=== PATIENT | male | born 1990 | race Caucasian/White ===

== ENCOUNTER 2021-01-24 11:30 | Inpatient (IN) | payer OTHER ==
[2021-01-24 12:33] VITALS: BMI 29.9
[2021-01-24] MEDS ORDERED: ONDANSETRON *ODT* 4 MG TABLET SL PRN (13:44)
[2021-01-24] MEDS ORDERED: METHOCARBAMOL 500 MG TABLET PO PRN (13:44)
[2021-01-24] MEDS ORDERED: METHADONE HCL 10 MG TABLET (FOR DETOX USE ONLY) PO ONE (13:44)
[2021-01-24] MEDS ORDERED: chlordiazePOXIDE HCL 25 MG CAPSULE PO PRN (13:44)
[2021-01-24] MEDS ORDERED: MAGNESIUM CITRATE 300 ML BOTTLE PO PRN (13:44)
[2021-01-24] MEDS ORDERED: MENTHOL/PHENOL 1 EACH UD MM PRN (13:44)
[2021-01-24] MEDS ORDERED: BISMUTH SUBSALICYLATE 262 MG/15 ML BTL PO PRN (13:44)
[2021-01-24] MEDS ORDERED: NICOTINE POLACRILEX 2 MG GUM BUC PRN (13:44)
[2021-01-24] MEDS ORDERED: MAGNESIUM HYDROX 2400MG/30ML ORAL SUSPENSION 30 ML CUP PO PRN (13:44)
[2021-01-24] MEDS ORDERED: cloNIDine HCL 0.1 MG TABLET PO PRN (13:44)
[2021-01-24] MEDS ORDERED: IBUPROFEN 400 MG TABLET (FP) PO PRN (13:44)
[2021-01-24] MEDS ORDERED: MAG HYDROX/AL HYDROX/SIMETH 30 ML UNIT-DOSE CUP PO PRN (13:44)
[2021-01-24] MEDS ORDERED: ACETAMINOPHEN 325 MG TABLET (FP) PO PRN ×2 (13:44)
[2021-01-24] MEDS: hydrOXYzine PAMOATE 25 MG CAPSULE (FP) PO SCH ×3 (15:07→22:42)
[2021-01-24] MEDS: PRENATAL VITAMINS W/ FOLIC ACID TABLET (FP) PO SCH (15:07)
[2021-01-24] MEDS: NICOTINE 14 MG/24 HOURS TOPICAL PATCH TD SCH (15:07)
[2021-01-24] MEDS: chlordiazePOXIDE HCL 25 MG CAPSULE PO SCH ×3 (15:08→22:43)
[2021-01-24] MEDS: THIAMINE HCL 100 MG TABLET (FP) PO SCH (22:42)
[2021-01-24] MEDS: MELATONIN 5 MG TABLETS PO SCH (22:42)
[2021-01-25] MEDS: hydrOXYzine PAMOATE 25 MG CAPSULE (FP) PO SCH ×5 (06:14→23:04)
[2021-01-25] MEDS: chlordiazePOXIDE HCL 25 MG CAPSULE PO SCH ×4 (06:15→23:04)
[2021-01-25] MEDS ORDERED: METHADONE HCL 10 MG TABLET (FOR DETOX USE ONLY) ONE (09:27)
[2021-01-25] MEDS ORDERED: METHADONE HCL 5 MG TABLET (FOR DETOX USE ONLY) ONE (09:27)
[2021-01-25] MEDS ORDERED: METHADONE (DETOX) 20 MG, METHADONE (DETOX) 5 MG PO ONE (10:00)
[2021-01-25] MEDS: PRENATAL VITAMINS W/ FOLIC ACID TABLET (FP) PO SCH (10:10)
[2021-01-25] MEDS: NICOTINE 14 MG/24 HOURS TOPICAL PATCH TD SCH (10:11)
[2021-01-25 10:20] LABS: HEMATOCRIT 38.2 % (35.4-49); MCH 28.7 pg (25.7-33.7); MEAN CELL VOLUME 84.2 fl (80-96); MEAN PLT VOLUME 8.8 fl (7.5-11.1); PLATELET COUNT 283 K/MM3 (134-434); RBC 4.54 M/mm3 (4.00-5.60)
[2021-01-25 10:39] LABS: ALBUMIN 3.6 g/dl (3.4-5.0); CALCIUM 9.2 mg/dL (8.5-10.1)
[2021-01-25 10:40] LABS: BLOOD UREA NITROGEN 13.8 mg/dL (7-18)
[2021-01-25 10:42] LABS: CREATININE 1.1 mg/dL (0.55-1.3)
[2021-01-25 10:44] LABS: BILIRUBIN,TOTAL 0.3 mg/dL (0.2-1); TOT PROT 6.4 g/dl (6.4-8.2)
[2021-01-25] MEDS: MELATONIN 5 MG TABLETS PO SCH (23:03)
[2021-01-25] MEDS: THIAMINE HCL 100 MG TABLET (FP) PO SCH (23:04)
[2021-01-26] MEDS: hydrOXYzine PAMOATE 25 MG CAPSULE (FP) PO SCH ×5 (05:59→22:52)
[2021-01-26] MEDS: chlordiazePOXIDE HCL 25 MG CAPSULE PO SCH ×4 (06:00→22:53)
[2021-01-26] MEDS ORDERED: METHADONE HCL 10 MG TABLET (FOR DETOX USE ONLY) PO ONE (10:00)
[2021-01-26] MEDS: PRENATAL VITAMINS W/ FOLIC ACID TABLET (FP) PO SCH (10:07)
[2021-01-26] MEDS: NICOTINE 14 MG/24 HOURS TOPICAL PATCH TD SCH (10:08)
[2021-01-26] MEDS: MELATONIN 5 MG TABLETS PO SCH (22:52)
[2021-01-26] MEDS: THIAMINE HCL 100 MG TABLET (FP) PO SCH (22:52)
[2021-01-27] MEDS ORDERED: chlordiazePOXIDE HCL 10 MG CAPSULE PO PRN
[2021-01-27] MEDS: chlordiazePOXIDE HCL 10 MG CAPSULE PO SCH ×2 (05:56→10:16)
[2021-01-27] MEDS: hydrOXYzine PAMOATE 25 MG CAPSULE (FP) PO SCH ×2 (05:56→10:18)
[2021-01-27] MEDS ORDERED: METHADONE HCL 10 MG TABLET (FOR DETOX USE ONLY) ONE (09:06)
[2021-01-27] MEDS ORDERED: METHADONE HCL 5 MG TABLET (FOR DETOX USE ONLY) ONE (09:06)
[2021-01-27 09:24] VITALS: BP 106/60; PULSE 68; TEMP 97.1
[2021-01-27] MEDS ORDERED: METHADONE (DETOX) 10 MG, METHADONE (DETOX) 5 MG PO ONE (10:00)
[2021-01-27] MEDS: PRENATAL VITAMINS W/ FOLIC ACID TABLET (FP) PO SCH (10:15)
[2021-01-27] MEDS: NICOTINE 14 MG/24 HOURS TOPICAL PATCH TD SCH (10:18)
[2021-01-28] MEDS ORDERED: chlordiazePOXIDE HCL 10 MG CAPSULE PO SCH (05:00)
[2021-01-28 06:06] LABS: SARS-CoV-2 NAA Not Detected (Not Detected)
[2021-01-28] MEDS ORDERED: METHADONE HCL 10 MG TABLET (FOR DETOX USE ONLY) PO ONE (10:00)
[2021-01-29] MEDS ORDERED: chlordiazePOXIDE HCL 10 MG CAPSULE PO ONE (05:00)
[2021-01-29] MEDS ORDERED: METHADONE HCL 5 MG TABLET (FOR DETOX USE ONLY) PO ONE (06:00)
== END 2021-01-27 11:00 | disposition left against medical advice (07) | DRG 770 ==
LOC: YASAS 11:30 → Y3N 13:19
PROVIDERS: ADMIT Allergy & Immunology; ATTEND Allergy & Immunology
PROC: HZ2ZZZZ Detoxification Services for Substance Abuse Treatment (ICD-10-PCS; principal; 2021-01-24)
DX: F11.23 Opioid dependence with withdrawal (principal); F13.231 Sedative, hypnotic or anxiolytic dependence with withdrawal delirium; F17.210 Nicotine dependence, cigarettes, uncomplicated; F19.24 Other psychoactive substance dependence with psychoactive substance-induced mood disorder; F41.1 Generalized anxiety disorder; E66.9 Obesity, unspecified; Z68.30 Body mass index [BMI] 30.0-30.9, adult; Z56.0 Unemployment, unspecified; Z59.0 Homelessness
CPT/HCPCS: 36415; 80053; 85027; 86780; 93005; 93010; C9803; U0003; U0005

== ENCOUNTER 2021-03-10 11:38 | Inpatient (IN) | payer OTHER ==
[2021-03-10] MEDS ORDERED: IBUPROFEN 400 MG TABLET (FP) PO PRN (12:40)
[2021-03-10] MEDS ORDERED: cloNIDine HCL 0.1 MG TABLET PO PRN (12:40)
[2021-03-10] MEDS ORDERED: MENTHOL/PHENOL 1 EACH UD MM PRN (12:40)
[2021-03-10] MEDS ORDERED: NICOTINE POLACRILEX 2 MG GUM BUC PRN (12:40)
[2021-03-10] MEDS ORDERED: BISMUTH SUBSALICYLATE 262 MG/15 ML BTL PO PRN (12:40)
[2021-03-10] MEDS ORDERED: METHADONE HCL 10 MG TABLET (FOR DETOX USE ONLY) PO ONE (12:40)
[2021-03-10] MEDS ORDERED: ACETAMINOPHEN 325 MG TABLET (FP) PO PRN ×2 (12:40)
[2021-03-10] MEDS ORDERED: MAGNESIUM HYDROX 2400MG/30ML ORAL SUSPENSION 30 ML CUP PO PRN (12:40)
[2021-03-10] MEDS ORDERED: MAGNESIUM CITRATE 300 ML BOTTLE PO PRN (12:40)
[2021-03-10] MEDS ORDERED: MAG HYDROX/AL HYDROX/SIMETH 30 ML UNIT-DOSE CUP PO PRN (12:40)
[2021-03-10] MEDS ORDERED: ONDANSETRON *ODT* 4 MG TABLET SL PRN (12:40)
[2021-03-10 12:45] VITALS: BMI 27.7
[2021-03-10] MEDS ORDERED: METHADONE HCL 10 MG TABLET (FOR DETOX USE ONLY) ONE (12:58)
[2021-03-10] MEDS ORDERED: IBUPROFEN 400 MG TABLET (FP) PO ONE (12:59)
[2021-03-10] MEDS: diazePAM 5 MG TABLET PO PRN (14:09)
[2021-03-10] MEDS: hydrOXYzine PAMOATE 25 MG CAPSULE (FP) PO SCH ×3 (14:09→22:04)
[2021-03-10] MEDS: PRENATAL VITAMINS W/ FOLIC ACID TABLET (FP) PO SCH (14:10)
[2021-03-10] MEDS: diazePAM 5 MG TABLET PO SCH ×2 (17:46→22:05)
[2021-03-10] MEDS ORDERED: MELATONIN 5 MG TABLETS PO SCH (22:00)
[2021-03-10] MEDS: THIAMINE HCL 100 MG TABLET (FP) PO SCH (22:04)
[2021-03-11] MEDS: hydrOXYzine PAMOATE 25 MG CAPSULE (FP) PO SCH ×5 (05:39→22:03)
[2021-03-11] MEDS: diazePAM 5 MG TABLET PO SCH ×4 (05:40→22:03)
[2021-03-11] MEDS ORDERED: METHADONE HCL 10 MG TABLET (FOR DETOX USE ONLY) ONE (09:13)
[2021-03-11] MEDS ORDERED: METHADONE HCL 5 MG TABLET (FOR DETOX USE ONLY) ONE (09:13)
[2021-03-11] MEDS: PRENATAL VITAMINS W/ FOLIC ACID TABLET (FP) PO SCH (09:43)
[2021-03-11] MEDS ORDERED: METHADONE (DETOX) 20 MG, METHADONE (DETOX) 5 MG PO ONE (10:00)
[2021-03-11 11:34] LABS: HEMATOCRIT 39.5 % (35.4-49); HEMOGLOBIN 13.2 GM/dL (11.7-16.9); MCH 28.8 pg (25.7-33.7); MCHC 33.5 g/dl (32.0-35.9); MEAN CELL VOLUME 85.9 fl (80-96); MEAN PLT VOLUME 8.1 fl (7.5-11.1); PLATELET COUNT 246 K/MM3 (134-434); RDW 14.3 % (11.9-15.9)
[2021-03-11 11:37] LABS: ALBUMIN 3.3 g/dl (3.4-5.0); BLOOD UREA NITROGEN 15.9 mg/dL (7-18); CALCIUM 8.8 mg/dL (8.5-10.1)
[2021-03-11 11:42] LABS: BILIRUBIN,TOTAL 0.4 mg/dL (0.2-1); CREATININE 0.9 mg/dL (0.55-1.3); TOT PROT 5.8 g/dl (6.4-8.2)
[2021-03-11] MEDS: MELATONIN 5 MG TABLETS PO SCH (22:03)
[2021-03-11] MEDS: THIAMINE HCL 100 MG TABLET (FP) PO SCH (22:03)
[2021-03-12] MEDS: hydrOXYzine PAMOATE 25 MG CAPSULE (FP) PO SCH ×5 (06:06→22:09)
[2021-03-12] MEDS: diazePAM 5 MG TABLET PO SCH ×3 (06:06→22:08)
[2021-03-12] MEDS: METHOCARBAMOL 500 MG TABLET PO PRN (06:07)
[2021-03-12] MEDS: diazePAM 5 MG TABLET PO PRN (09:43)
[2021-03-12] MEDS: PRENATAL VITAMINS W/ FOLIC ACID TABLET (FP) PO SCH (09:43)
[2021-03-12] MEDS ORDERED: P-EPHED 60MG/TRIPROLIDI 2.5MG TABLET PO PRN (09:51)
[2021-03-12] MEDS ORDERED: METHADONE HCL 10 MG TABLET (FOR DETOX USE ONLY) PO ONE (10:00)
[2021-03-12] MEDS: MELATONIN 5 MG TABLETS PO SCH (22:07)
[2021-03-12] MEDS: THIAMINE HCL 100 MG TABLET (FP) PO SCH (22:08)
[2021-03-13] MEDS: hydrOXYzine PAMOATE 25 MG CAPSULE (FP) PO SCH ×5 (05:32→22:11)
[2021-03-13] MEDS: diazePAM 5 MG TABLET PO SCH ×2 (05:33→17:31)
[2021-03-13] MEDS ORDERED: METHADONE HCL 5 MG TABLET (FOR DETOX USE ONLY) ONE (09:10)
[2021-03-13] MEDS ORDERED: METHADONE HCL 10 MG TABLET (FOR DETOX USE ONLY) ONE (09:10)
[2021-03-13] MEDS ORDERED: METHADONE (DETOX) 10 MG, METHADONE (DETOX) 5 MG PO ONE (10:00)
[2021-03-13] MEDS: PRENATAL VITAMINS W/ FOLIC ACID TABLET (FP) PO SCH (10:09)
[2021-03-13 14:12] LABS: SARS-CoV-2 NAA Not Detected (Not Detected)
[2021-03-13] MEDS: MELATONIN 5 MG TABLETS PO SCH (22:11)
[2021-03-13] MEDS: THIAMINE HCL 100 MG TABLET (FP) PO SCH (22:11)
[2021-03-14] MEDS: hydrOXYzine PAMOATE 25 MG CAPSULE (FP) PO SCH ×2 (05:48→11:02)
[2021-03-14] MEDS ORDERED: diazePAM 5 MG TABLET PO ONE (06:00)
[2021-03-14] MEDS ORDERED: METHADONE HCL 10 MG TABLET (FOR DETOX USE ONLY) PO ONE (10:00)
[2021-03-14] MEDS: hydrOXYzine PAMOATE 25 MG CAPSULE (FP) PO PRN (11:01)
[2021-03-14] MEDS: METHOCARBAMOL 500 MG TABLET PO PRN (11:02)
[2021-03-14] MEDS: PRENATAL VITAMINS W/ FOLIC ACID TABLET (FP) PO SCH (11:02)
[2021-03-14] MEDS: THIAMINE HCL 100 MG TABLET (FP) PO SCH (22:13)
[2021-03-14] MEDS: MELATONIN 5 MG TABLETS PO SCH (22:13)
[2021-03-15] MEDS ORDERED: METHADONE HCL 5 MG TABLET (FOR DETOX USE ONLY) PO ONE (06:00)
[2021-03-15 09:18] VITALS: BP 124/74; PULSE 79; TEMP 97.1
[2021-03-15] MEDS: hydrOXYzine PAMOATE 25 MG CAPSULE (FP) PO PRN (09:53)
[2021-03-15] MEDS: PRENATAL VITAMINS W/ FOLIC ACID TABLET (FP) PO SCH (09:53)
[2021-03-15] MEDS: METHOCARBAMOL 500 MG TABLET PO PRN (09:53)
== END 2021-03-15 09:40 | disposition other institution (70) | DRG 773 ==
LOC: YASAS 11:38 → Y3N 12:53
PROVIDERS: ADMIT Allergy & Immunology; ATTEND Allergy & Immunology
PROC: HZ2ZZZZ Detoxification Services for Substance Abuse Treatment (ICD-10-PCS; principal; 2021-03-10)
DX: F11.23 Opioid dependence with withdrawal (principal); F13.230 Sedative, hypnotic or anxiolytic dependence with withdrawal, uncomplicated; F17.210 Nicotine dependence, cigarettes, uncomplicated; F19.282 Other psychoactive substance dependence with psychoactive substance-induced sleep disorder; F19.24 Other psychoactive substance dependence with psychoactive substance-induced mood disorder; F41.1 Generalized anxiety disorder; Z56.0 Unemployment, unspecified; Z59.0 Homelessness
CPT/HCPCS: 36415; 80053; 85027; 86780; C9803; J0735; U0003; U0005

== ENCOUNTER 2021-03-31 01:03 | Inpatient (IN) | payer OTHER ==
[2021-03-31 01:22] VITALS: BMI 29.5
[2021-03-31] MEDS ORDERED: cloNIDine HCL 0.1 MG TABLET PO PRN (01:34)
[2021-03-31] MEDS ORDERED: METHADONE HCL 10 MG TABLET (FOR DETOX USE ONLY) PO ONE (01:34)
[2021-03-31] MEDS ORDERED: MENTHOL/PHENOL 1 EACH UD MM PRN (01:34)
[2021-03-31] MEDS ORDERED: ONDANSETRON *ODT* 4 MG TABLET SL PRN (01:34)
[2021-03-31] MEDS ORDERED: MAGNESIUM HYDROX 2400MG/30ML ORAL SUSPENSION 30 ML CUP PO PRN (01:34)
[2021-03-31] MEDS ORDERED: NICOTINE POLACRILEX 2 MG GUM BUC PRN (01:34)
[2021-03-31] MEDS ORDERED: diazePAM 5 MG TABLET PO ONE (01:34)
[2021-03-31] MEDS ORDERED: MAGNESIUM CITRATE 300 ML BOTTLE PO PRN (01:34)
[2021-03-31] MEDS ORDERED: BISMUTH SUBSALICYLATE 524 MG/30 ML PO PRN (01:34)
[2021-03-31] MEDS ORDERED: ACETAMINOPHEN 325 MG TABLET (FP) PO PRN ×2 (01:34)
[2021-03-31] MEDS ORDERED: MAG HYDROX/AL HYDROX/SIMETH 30 ML UNIT-DOSE CUP PO PRN (01:34)
[2021-03-31] MEDS: hydrOXYzine PAMOATE 25 MG CAPSULE (FP) PO SCH ×5 (05:25→22:05)
[2021-03-31] MEDS: diazePAM 5 MG TABLET PO SCH ×4 (05:25→22:05)
[2021-03-31] MEDS: IBUPROFEN 400 MG TABLET (FP) PO PRN ×2 (07:09→22:06)
[2021-03-31] MEDS: PRENATAL VITAMINS W/ FOLIC ACID TABLET (FP) PO SCH (10:04)
[2021-03-31] MEDS: METHOCARBAMOL 500 MG TABLET PO PRN ×2 (10:04→22:07)
[2021-03-31] MEDS: NICOTINE 14 MG/24 HOURS TOPICAL PATCH TD SCH (10:05)
[2021-03-31 10:34] LABS: BASO % 0.3 % (0-2.0); HEMATOCRIT 37.8 % (35.4-49); HEMOGLOBIN 12.4 GM/dL (11.7-16.9); LYMPH % 26.8 % (8-40); MCHC 32.8 g/dl (32.0-35.9); MEAN CELL VOLUME 85.2 fl (80-96); MEAN PLT VOLUME 7.8 fl (7.5-11.1); MONO % 8.3 % (3.8-10.2); NEUT % 63.6 % (42.8-82.8); PLATELET COUNT 295 10^3/uL (134-434); RBC 4.44 M/mm3 (4.00-5.60); RDW 14.4 % (11.9-15.9); WHITE BLOOD COUNT 10.5 K/mm3 (4.0-10.0)
[2021-03-31 11:14] LABS: CALCIUM 8.9 mg/dL (8.5-10.1)
[2021-03-31 11:16] LABS: ALBUMIN 3.5 g/dl (3.4-5.0)
[2021-03-31 11:17] LABS: BILIRUBIN,TOTAL 0.4 mg/dL (0.2-1); TOT PROT 6.2 g/dl (6.4-8.2)
[2021-03-31 11:20] LABS: CREATININE 1.1 mg/dL (0.55-1.3)
[2021-03-31] MEDS: diazePAM 5 MG TABLET PO PRN (13:13)
[2021-03-31] MEDS: MELATONIN 5 MG TABLETS PO SCH (22:07)
[2021-03-31] MEDS: THIAMINE HCL 100 MG TABLET (FP) PO SCH (22:42)
[2021-04-01] MEDS: hydrOXYzine PAMOATE 25 MG CAPSULE (FP) PO SCH ×5 (05:31→22:06)
[2021-04-01] MEDS: diazePAM 5 MG TABLET PO SCH ×3 (05:32→22:08)
[2021-04-01] MEDS ORDERED: METHADONE HCL 5 MG TABLET (FOR DETOX USE ONLY) ONE (08:59)
[2021-04-01] MEDS ORDERED: METHADONE HCL 10 MG TABLET (FOR DETOX USE ONLY) ONE (08:59)
[2021-04-01] MEDS ORDERED: METHADONE (DETOX) 20 MG, METHADONE (DETOX) 5 MG PO ONE (10:00)
[2021-04-01] MEDS: NICOTINE 14 MG/24 HOURS TOPICAL PATCH TD SCH (10:10)
[2021-04-01] MEDS: diazePAM 5 MG TABLET PO PRN (10:12)
[2021-04-01] MEDS: PRENATAL VITAMINS W/ FOLIC ACID TABLET (FP) PO SCH (10:38)
[2021-04-01] MEDS: METHOCARBAMOL 500 MG TABLET PO PRN ×2 (12:51→22:06)
[2021-04-01] MEDS: THIAMINE HCL 100 MG TABLET (FP) PO SCH (22:07)
[2021-04-01] MEDS: MELATONIN 5 MG TABLETS PO SCH (22:07)
[2021-04-02] MEDS: hydrOXYzine PAMOATE 25 MG CAPSULE (FP) PO SCH ×5 (05:32→22:09)
[2021-04-02] MEDS: METHOCARBAMOL 500 MG TABLET PO PRN ×2 (05:33→22:08)
[2021-04-02] MEDS: diazePAM 5 MG TABLET PO SCH ×2 (05:33→17:59)
[2021-04-02] MEDS: PRENATAL VITAMINS W/ FOLIC ACID TABLET (FP) PO SCH (10:00)
[2021-04-02] MEDS: diazePAM 5 MG TABLET PO PRN ×3 (10:00→22:11)
[2021-04-02] MEDS ORDERED: METHADONE HCL 10 MG TABLET (FOR DETOX USE ONLY) PO ONE (10:00)
[2021-04-02] MEDS: NICOTINE 14 MG/24 HOURS TOPICAL PATCH TD SCH (10:01)
[2021-04-02] MEDS: THIAMINE HCL 100 MG TABLET (FP) PO SCH (22:08)
[2021-04-02] MEDS: MELATONIN 5 MG TABLETS PO SCH (22:08)
[2021-04-03] MEDS: hydrOXYzine PAMOATE 25 MG CAPSULE (FP) PO SCH ×2 (05:45→10:15)
[2021-04-03] MEDS ORDERED: diazePAM 5 MG TABLET PO ONE (06:00)
[2021-04-03] MEDS ORDERED: METHADONE HCL 5 MG TABLET (FOR DETOX USE ONLY) ONE (08:57)
[2021-04-03] MEDS ORDERED: METHADONE HCL 10 MG TABLET (FOR DETOX USE ONLY) ONE (08:57)
[2021-04-03] MEDS ORDERED: METHADONE (DETOX) 10 MG, METHADONE (DETOX) 5 MG PO ONE (10:00)
[2021-04-03] MEDS: NICOTINE 14 MG/24 HOURS TOPICAL PATCH TD SCH (10:15)
[2021-04-03] MEDS: PRENATAL VITAMINS W/ FOLIC ACID TABLET (FP) PO SCH (10:15)
[2021-04-03] MEDS: METHOCARBAMOL 500 MG TABLET PO PRN ×2 (10:16→22:08)
[2021-04-03] MEDS: diazePAM 5 MG TABLET PO PRN (18:10)
[2021-04-03] MEDS: MELATONIN 5 MG TABLETS PO SCH (22:07)
[2021-04-03] MEDS: THIAMINE HCL 100 MG TABLET (FP) PO SCH (22:07)
[2021-04-03] MEDS: hydrOXYzine PAMOATE 25 MG CAPSULE (FP) PO PRN (22:08)
[2021-04-04] MEDS: NICOTINE 14 MG/24 HOURS TOPICAL PATCH TD SCH (09:10)
[2021-04-04] MEDS: METHOCARBAMOL 500 MG TABLET PO PRN ×2 (09:12→17:33)
[2021-04-04] MEDS: PRENATAL VITAMINS W/ FOLIC ACID TABLET (FP) PO SCH (09:12)
[2021-04-04] MEDS: diazePAM 5 MG TABLET PO PRN ×3 (09:12→22:05)
[2021-04-04] MEDS ORDERED: METHADONE HCL 10 MG TABLET (FOR DETOX USE ONLY) PO ONE (10:00)
[2021-04-04] MEDS: THIAMINE HCL 100 MG TABLET (FP) PO SCH (22:04)
[2021-04-04] MEDS: MELATONIN 5 MG TABLETS PO SCH (22:05)
[2021-04-04] MEDS: hydrOXYzine PAMOATE 25 MG CAPSULE (FP) PO PRN (22:05)
[2021-04-05] MEDS ORDERED: METHADONE HCL 5 MG TABLET (FOR DETOX USE ONLY) PO ONE (06:00)
[2021-04-05 09:54] VITALS: BP 116/74; PULSE 89; TEMP 96.1
== END 2021-04-05 09:41 | disposition home or self-care (01) | DRG 773 ==
LOC: YASAS 01:03 → Y3N 01:40
PROVIDERS: ADMIT Allergy & Immunology; ATTEND Allergy & Immunology
PROC: HZ2ZZZZ Detoxification Services for Substance Abuse Treatment (ICD-10-PCS; principal; 2021-03-31)
DX: F11.23 Opioid dependence with withdrawal (principal); F13.230 Sedative, hypnotic or anxiolytic dependence with withdrawal, uncomplicated; F17.210 Nicotine dependence, cigarettes, uncomplicated; F41.1 Generalized anxiety disorder; R79.89 Other specified abnormal findings of blood chemistry; Z56.0 Unemployment, unspecified
CPT/HCPCS: 36415; 80053; 85025; 86780; C9803; U0003; U0005

== ENCOUNTER 2022-05-09 10:46 | Inpatient (IN) | payer OTHER ==
[2022-05-09 11:48] VITALS: BMI 39.9
[2022-05-09] MEDS ORDERED: IBUPROFEN 400 MG TABLET (FP) PO PRN (12:29)
[2022-05-09] MEDS ORDERED: LOPERAMIDE HCL 2 MG CAPSULE PO PRN (12:29)
[2022-05-09] MEDS ORDERED: BENZOCAINE/MENTHOL (CHLORASEPTIC ) LOZENGE MM PRN (12:29)
[2022-05-09] MEDS ORDERED: ACETAMINOPHEN 325 MG TABLET (FP) PO PRN ×2 (12:29)
[2022-05-09] MEDS ORDERED: DICYCLOMINE HCL 10 MG CAPSULE PO PRN (12:29)
[2022-05-09] MEDS ORDERED: MAG HYDROX/AL HYDROX/SIMETH 30 ML UNIT-DOSE CUP PO PRN (12:29)
[2022-05-09] MEDS ORDERED: NICOTINE POLACRILEX 2 MG GUM BUC PRN (12:29)
[2022-05-09] MEDS ORDERED: ONDANSETRON *ODT* 4 MG TABLET SL PRN (12:29)
[2022-05-09] MEDS ORDERED: METHOCARBAMOL 500 MG TABLET PO PRN (12:29)
[2022-05-09] MEDS ORDERED: IBUPROFEN 600 MG TABLET (FP) PO PRN (12:29)
[2022-05-09] MEDS ORDERED: MAGNESIUM CITRATE 300 ML BOTTLE PO PRN (12:29)
[2022-05-09] MEDS ORDERED: MAGNESIUM HYDROX 2400MG/30ML ORAL SUSPENSION 30 ML CUP PO PRN (12:29)
[2022-05-09] MEDS ORDERED: BISMUTH SUBSALICYLATE 524 MG/30 ML PO PRN (12:29)
[2022-05-09] MEDS: hydrOXYzine PAMOATE 25 MG CAPSULE (FP) PO SCH ×3 (14:04→22:16)
[2022-05-09] MEDS: diazePAM 5 MG TABLET PO SCH ×2 (17:14→22:18)
[2022-05-09] MEDS: NICOTINE 10 MG CARTRIDGE (INHALER) IH PRN (17:24)
[2022-05-09] MEDS ORDERED: MELATONIN 5 MG TABLETS PO SCH (22:00)
[2022-05-09] MEDS: THIAMINE HCL 100 MG TABLET (FP) PO SCH (22:17)
[2022-05-10] MEDS ORDERED: methaDONE HCL 10 MG TABLET ONE (04:38)
[2022-05-10] MEDS ORDERED: methaDONE HCL 40 MG DISPERSABLE TABLET ONE (04:38)
[2022-05-10] MEDS: diazePAM 5 MG TABLET PO SCH ×4 (05:34→22:09)
[2022-05-10] MEDS: hydrOXYzine PAMOATE 25 MG CAPSULE (FP) PO SCH ×5 (05:34→22:09)
[2022-05-10] MEDS ORDERED: methaDONE HCL 10 MG TABLET PO ONE (06:00)
[2022-05-10 09:10] LABS: HEMOGLOBIN 12.2 GM/dL (11.7-16.9); MCH 28.7 pg (25.7-33.7); MCHC 34.9 g/dl (32.0-35.9); MEAN CELL VOLUME 82.4 fl (80-96); MEAN PLT VOLUME 7.4 fl (7.5-11.1); PLATELET COUNT 281 10^3/uL (134-434); RBC 4.24 M/mm3 (4.00-5.60); WHITE BLOOD COUNT 8.1 K/mm3 (4.0-10.0)
[2022-05-10 09:28] LABS: ALBUMIN 3.1 g/dl (3.4-5.0); CALCIUM 8.6 mg/dL (8.5-10.1)
[2022-05-10 09:29] LABS: BLOOD UREA NITROGEN 19.7 mg/dL (7-18)
[2022-05-10 09:34] LABS: BILIRUBIN,TOTAL 0.4 mg/dL (0.2-1)
[2022-05-10] MEDS: NICOTINE 10 MG CARTRIDGE (INHALER) IH PRN ×3 (10:13→22:11)
[2022-05-10] MEDS: NICOTINE 21 MG/24 HOURS TOPICAL PATCH TD SCH (10:13)
[2022-05-10] MEDS: PRENATAL VITAMINS W/ FOLIC ACID TABLET (FP) PO SCH (10:14)
[2022-05-10] MEDS: THIAMINE HCL 100 MG TABLET (FP) PO SCH (22:08)
[2022-05-10] MEDS: SUVOREXANT 15 MG TABLET PO PRN (22:10)
[2022-05-11] MEDS: diazePAM 5 MG TABLET PO SCH ×3 (05:17→22:04)
[2022-05-11] MEDS: hydrOXYzine PAMOATE 25 MG CAPSULE (FP) PO SCH ×5 (05:18→22:04)
[2022-05-11] MEDS: NICOTINE 10 MG CARTRIDGE (INHALER) IH PRN ×3 (05:18→22:02)
[2022-05-11] MEDS ORDERED: methaDONE HCL 40 MG DISPERSABLE TABLET PO SCH (08:45)
[2022-05-11] MEDS ORDERED: methaDONE HCL 10 MG TABLET ONE (08:53)
[2022-05-11] MEDS ORDERED: methaDONE HCL 40 MG DISPERSABLE TABLET ONE (08:53)
[2022-05-11] MEDS: PRENATAL VITAMINS W/ FOLIC ACID TABLET (FP) PO SCH (09:04)
[2022-05-11] MEDS: diazePAM 5 MG TABLET PO PRN ×2 (09:04→17:33)
[2022-05-11] MEDS: NICOTINE 21 MG/24 HOURS TOPICAL PATCH TD SCH (09:53)
[2022-05-11] MEDS: SUVOREXANT 15 MG TABLET PO PRN (22:04)
[2022-05-11] MEDS: THIAMINE HCL 100 MG TABLET (FP) PO SCH (22:04)
[2022-05-12] MEDS ORDERED: methaDONE HCL 10 MG TABLET ONE (04:13)
[2022-05-12] MEDS ORDERED: methaDONE HCL 40 MG DISPERSABLE TABLET ONE (04:13)
[2022-05-12] MEDS: diazePAM 5 MG TABLET PO SCH ×2 (05:22→17:51)
[2022-05-12] MEDS: hydrOXYzine PAMOATE 25 MG CAPSULE (FP) PO SCH ×5 (05:23→22:16)
[2022-05-12] MEDS: PRENATAL VITAMINS W/ FOLIC ACID TABLET (FP) PO SCH (10:11)
[2022-05-12] MEDS: NICOTINE 21 MG/24 HOURS TOPICAL PATCH TD SCH (10:12)
[2022-05-12] MEDS: THIAMINE HCL 100 MG TABLET (FP) PO SCH (22:16)
[2022-05-12] MEDS: SUVOREXANT 15 MG TABLET PO PRN (22:17)
[2022-05-13] MEDS: hydrOXYzine PAMOATE 25 MG CAPSULE (FP) PO SCH (05:36)
[2022-05-13] MEDS ORDERED: diazePAM 5 MG TABLET PO ONE (06:00)
[2022-05-13 08:56] VITALS: BP 135/82; PULSE 83; RESP 16; TEMP 96.2
== END 2022-05-13 09:03 | disposition home or self-care (01) | DRG 773 ==
LOC: SUATTDRO 10:46 → YASAS 10:46 → Y3N 12:31
PROVIDERS: ADMIT Allergy & Immunology; ATTEND Surgery
PROC: HZ2ZZZZ Detoxification Services for Substance Abuse Treatment (ICD-10-PCS; principal; 2022-05-09)
DX: F10.230 Alcohol dependence with withdrawal, uncomplicated (principal); F11.20 Opioid dependence, uncomplicated; F13.20 Sedative, hypnotic or anxiolytic dependence, uncomplicated; F17.210 Nicotine dependence, cigarettes, uncomplicated; F32.A Depression, unspecified; F41.9 Anxiety disorder, unspecified; F19.282 Other psychoactive substance dependence with psychoactive substance-induced sleep disorder; G47.00 Insomnia, unspecified; R79.89 Other specified abnormal findings of blood chemistry; R74.01 Elevation of levels of liver transaminase levels; E46 Unspecified protein-calorie malnutrition; E66.9 Obesity, unspecified; Z68.39 Body mass index [BMI] 39.0-39.9, adult; Z28.310 Unvaccinated for COVID-19; Z56.0 Unemployment, unspecified; Z59.00 Homelessness unspecified
CPT/HCPCS: 36415; 80053; 84450; 85027; 86780; C9803-CS; U0003; U0005

== ENCOUNTER 2022-12-07 08:00 | Inpatient (IN) | payer OTHER ==
[2022-12-07 08:39] VITALS: BMI 34.5
[2022-12-07] MEDS ORDERED: IBUPROFEN 400 MG TABLET (FP) PO PRN (08:48)
[2022-12-07] MEDS ORDERED: MAGNESIUM HYDROX 2400MG/30ML ORAL SUSPENSION 30 ML CUP PO PRN (08:48)
[2022-12-07] MEDS ORDERED: DICYCLOMINE HCL 10 MG CAPSULE PO PRN (08:48)
[2022-12-07] MEDS ORDERED: POLYETHYLENE GLYCOL (HEALTHYLAX) 3350 17 GM PACKET PO PRN (08:48)
[2022-12-07] MEDS ORDERED: MAG HYDROX/AL HYDROX/SIMETH 30 ML UNIT-DOSE CUP PO PRN (08:48)
[2022-12-07] MEDS ORDERED: NALOXONE HCL (KLOXXADO) 8 MG SPRAY NS PRN (08:48)
[2022-12-07] MEDS ORDERED: METHOCARBAMOL 500 MG TABLET PO PRN (08:48)
[2022-12-07] MEDS ORDERED: BISMUTH SUBSALICYLATE 524 MG/30 ML PO PRN (08:48)
[2022-12-07] MEDS ORDERED: BENZOCAINE/MENTHOL (CHLORASEPTIC ) LOZENGE MM PRN (08:48)
[2022-12-07] MEDS ORDERED: LOPERAMIDE HCL 2 MG CAPSULE PO PRN (08:48)
[2022-12-07] MEDS ORDERED: ACETAMINOPHEN 325 MG TABLET (FP) PO PRN ×2 (08:48)
[2022-12-07] MEDS ORDERED: ONDANSETRON *ODT* 4 MG TABLET SL PRN (08:48)
[2022-12-07] MEDS: NICOTINE 21 MG/24 HOURS TOPICAL PATCH TD SCH (11:22)
[2022-12-07] MEDS: methaDONE HCL 40 MG DISPERSABLE TABLET PO SCH (11:23)
[2022-12-07] MEDS: PRENATAL VITAMINS W/ FOLIC ACID TABLET (FP) PO SCH (11:25)
[2022-12-07] MEDS: diazePAM 5 MG TABLET PO SCH ×3 (11:26→22:14)
[2022-12-07] MEDS: NICOTINE 10 MG CARTRIDGE (INHALER) IH PRN ×2 (11:28→18:20)
[2022-12-07] MEDS ORDERED: methaDONE HCL 10 MG TABLET PO ONE (11:30)
[2022-12-07] MEDS: diazePAM 5 MG TABLET PO PRN (15:17)
[2022-12-07] MEDS: NICOTINE POLACRILEX 4 MG GUM BUC PRN (18:21)
[2022-12-07] MEDS: MELATONIN 5 MG TABLETS PO SCH (22:14)
[2022-12-07] MEDS: THIAMINE HCL 100 MG TABLET (FP) PO SCH (22:14)
[2022-12-08] MEDS: methaDONE HCL 40 MG DISPERSABLE TABLET PO SCH (05:32)
[2022-12-08] MEDS: diazePAM 5 MG TABLET PO SCH ×4 (05:33→22:49)
[2022-12-08] MEDS: NICOTINE POLACRILEX 4 MG GUM BUC PRN (05:36)
[2022-12-08] MEDS: NICOTINE 21 MG/24 HOURS TOPICAL PATCH TD SCH (10:13)
[2022-12-08] MEDS: PRENATAL VITAMINS W/ FOLIC ACID TABLET (FP) PO SCH (10:13)
[2022-12-08] MEDS: NICOTINE 10 MG CARTRIDGE (INHALER) IH PRN (10:57)
[2022-12-08 12:11] LABS: HEMATOCRIT 35.6 % (35.4-49); HEMOGLOBIN 11.9 GM/dL (11.7-16.9); MCH 27.1 pg (25.7-33.7); MCHC 33.4 g/dl (32.0-35.9); PLATELET COUNT 241 10^3/uL (134-434); WHITE BLOOD COUNT 7.1 K/mm3 (4.0-10.0)
[2022-12-08 12:13] LABS: CALCIUM 8.8 mg/dL (8.5-10.1)
[2022-12-08 12:14] LABS: ALBUMIN 3.1 g/dl (3.4-5.0); BLOOD UREA NITROGEN 13.4 mg/dL (7-18)
[2022-12-08 12:17] LABS: CREATININE 0.8 mg/dL (0.55-1.3)
[2022-12-08 12:19] LABS: BILIRUBIN,TOTAL 0.5 mg/dL (0.2-1); TOT PROT 5.9 g/dl (6.4-8.2)
[2022-12-08] MEDS: diazePAM 5 MG TABLET PO PRN ×2 (15:21→20:17)
[2022-12-08 19:19] LABS: HIV INTERPRETATION NEGATIVE (NEGATIVE)
[2022-12-08] MEDS: MELATONIN 5 MG TABLETS PO SCH (22:46)
[2022-12-08] MEDS: THIAMINE HCL 100 MG TABLET (FP) PO SCH (22:47)
[2022-12-08] MEDS: hydrOXYzine PAMOATE 25 MG CAPSULE (FP) PO PRN (22:49)
[2022-12-09] MEDS: diazePAM 5 MG TABLET PO PRN ×2 (03:05→07:26)
[2022-12-09] MEDS: methaDONE HCL 40 MG DISPERSABLE TABLET PO SCH (05:22)
[2022-12-09] MEDS: diazePAM 5 MG TABLET PO SCH ×3 (05:22→22:24)
[2022-12-09] MEDS: PRENATAL VITAMINS W/ FOLIC ACID TABLET (FP) PO SCH (10:30)
[2022-12-09] MEDS: NICOTINE 21 MG/24 HOURS TOPICAL PATCH TD SCH (10:31)
[2022-12-09] MEDS: IBUPROFEN 600 MG TABLET (FP) PO PRN (13:41)
[2022-12-09] MEDS: hydrOXYzine PAMOATE 25 MG CAPSULE (FP) PO PRN ×2 (14:59→22:23)
[2022-12-09] MEDS: NICOTINE POLACRILEX 4 MG GUM BUC PRN (15:00)
[2022-12-09] MEDS: THIAMINE HCL 100 MG TABLET (FP) PO SCH (22:23)
[2022-12-09] MEDS: MELATONIN 5 MG TABLETS PO SCH (22:23)
[2022-12-09] MEDS: NICOTINE 10 MG CARTRIDGE (INHALER) IH PRN (22:25)
[2022-12-10] MEDS: IBUPROFEN 600 MG TABLET (FP) PO PRN (03:19)
[2022-12-10] MEDS: methaDONE HCL 40 MG DISPERSABLE TABLET PO SCH (05:48)
[2022-12-10] MEDS: diazePAM 5 MG TABLET PO SCH ×2 (05:50→17:36)
[2022-12-10] MEDS: NICOTINE POLACRILEX 4 MG GUM BUC PRN (05:51)
[2022-12-10] MEDS: NICOTINE 21 MG/24 HOURS TOPICAL PATCH TD SCH (10:30)
[2022-12-10] MEDS: PRENATAL VITAMINS W/ FOLIC ACID TABLET (FP) PO SCH (10:31)
[2022-12-10] MEDS: hydrOXYzine PAMOATE 25 MG CAPSULE (FP) PO PRN ×2 (10:32→22:34)
[2022-12-10] MEDS: NICOTINE 10 MG CARTRIDGE (INHALER) IH PRN (10:32)
[2022-12-10] MEDS: THIAMINE HCL 100 MG TABLET (FP) PO SCH (22:34)
[2022-12-10] MEDS: MELATONIN 5 MG TABLETS PO SCH (22:34)
[2022-12-11] MEDS: IBUPROFEN 600 MG TABLET (FP) PO PRN ×2 (01:51→10:23)
[2022-12-11] MEDS ORDERED: diazePAM 5 MG TABLET PO ONE (06:00)
[2022-12-11] MEDS: methaDONE HCL 40 MG DISPERSABLE TABLET PO SCH (06:20)
[2022-12-11] MEDS: PRENATAL VITAMINS W/ FOLIC ACID TABLET (FP) PO SCH (10:24)
[2022-12-11] MEDS: NICOTINE 21 MG/24 HOURS TOPICAL PATCH TD SCH (10:24)
[2022-12-11 11:00] VITALS: BP 137/72; PULSE 89; RESP 18; TEMP 95.5
== END 2022-12-11 11:32 | disposition other institution (70) | DRG 773 ==
LOC: YASAS 08:00 → Y3N 09:47
PROVIDERS: ADMIT Allergy & Immunology; ATTEND Surgery
PROC: HZ2ZZZZ Detoxification Services for Substance Abuse Treatment (ICD-10-PCS; principal; 2022-12-07)
DX: F13.231 Sedative, hypnotic or anxiolytic dependence with withdrawal delirium (principal); F11.20 Opioid dependence, uncomplicated; F14.20 Cocaine dependence, uncomplicated; F17.210 Nicotine dependence, cigarettes, uncomplicated; F41.8 Other specified anxiety disorders; Z86.69 Personal history of other diseases of the nervous system and sense organs
CPT/HCPCS: 36415; 80053; 85027; 86780; 87389; 87811; 93005; 93010; C9803-CS; U0003; U0005

== ENCOUNTER 2023-01-05 12:25 | Inpatient (IN) | payer OTHER ==
[2023-01-05 12:41] VITALS: BMI 35.4
[2023-01-05] MEDS ORDERED: NALOXONE HCL 0.4 MG/ML VIAL IM PRN (13:24)
[2023-01-05] MEDS ORDERED: MAGNESIUM HYDROX 2400MG/30ML ORAL SUSPENSION 30 ML CUP PO PRN (13:24)
[2023-01-05] MEDS ORDERED: ACETAMINOPHEN 325 MG TABLET (FP) PO PRN (13:24)
[2023-01-05] MEDS ORDERED: NALOXONE HCL (KLOXXADO) 8 MG SPRAY NS PRN (13:24)
[2023-01-05] MEDS ORDERED: BISMUTH SUBSALICYLATE 262 MG/15 ML BTL PO PRN (13:24)
[2023-01-05] MEDS ORDERED: BENZONATATE 200 MG CAPSULE PO PRN (13:24)
[2023-01-05] MEDS ORDERED: BENZOCAINE/MENTHOL (CHLORASEPTIC ) LOZENGE MM PRN (13:24)
[2023-01-05] MEDS ORDERED: MAG HYDROX/AL HYDROX/SIMETH 30 ML UNIT-DOSE CUP PO PRN (13:24)
[2023-01-05] MEDS ORDERED: DICYCLOMINE HCL 10 MG CAPSULE PO PRN (13:24)
[2023-01-05] MEDS ORDERED: METHOCARBAMOL 500 MG TABLET PO PRN (13:24)
[2023-01-05] MEDS ORDERED: ONDANSETRON *ODT* 4 MG TABLET SL PRN (13:24)
[2023-01-05] MEDS ORDERED: POLYETHYLENE GLYCOL (HEALTHYLAX) 3350 17 GM PACKET PO PRN (13:24)
[2023-01-05] MEDS ORDERED: IBUPROFEN 600 MG TABLET (FP) PO PRN (13:24)
[2023-01-05] MEDS ORDERED: LOPERAMIDE HCL 2 MG CAPSULE PO PRN (13:24)
[2023-01-05] MEDS ORDERED: guaiFENesin 600 MG TABLET.ER (FP) PO PRN (13:24)
[2023-01-05] MEDS ORDERED: IBUPROFEN 400 MG TABLET (FP) PO PRN (13:24)
[2023-01-05] MEDS: hydrOXYzine PAMOATE 25 MG CAPSULE (FP) PO PRN (14:58)
[2023-01-05] MEDS ORDERED: hydrOXYzine PAMOATE 25 MG CAPSULE (FP) PO ONE (15:03)
[2023-01-05] MEDS ORDERED: MELATONIN 5 MG TABLETS PO SCH (22:00)
[2023-01-05] MEDS ORDERED: THIAMINE HCL 100 MG TABLET (FP) PO SCH (22:00)
[2023-01-06] MEDS: hydrOXYzine PAMOATE 25 MG CAPSULE (FP) PO PRN (00:35)
[2023-01-06] MEDS: NICOTINE 10 MG CARTRIDGE (INHALER) IH PRN ×2 (00:36→10:25)
[2023-01-06 06:22] VITALS: RESP 16
[2023-01-06] MEDS ORDERED: methaDONE HCL 10 MG TABLET PO SCH (06:30)
[2023-01-06] MEDS ORDERED: PRENATAL VITAMINS W/ FOLIC ACID TABLET (FP) PO SCH (10:00)
[2023-01-06 10:02] VITALS: TEMP 96.9
[2023-01-06 13:51] VITALS: BP 105/55; PULSE 60
[2023-01-06] MEDS ORDERED: SUVOREXANT 10 MG TABLET PO PRN (22:00)
== END 2023-01-06 15:06 | disposition home or self-care (01) | DRG 773 ==
LOC: YASAS 12:25 → Y3N 13:50
PROVIDERS: ADMIT Allergy & Immunology; ATTEND Surgery
PROC: HZ2ZZZZ Detoxification Services for Substance Abuse Treatment (ICD-10-PCS; principal; 2023-01-05)
DX: F13.20 Sedative, hypnotic or anxiolytic dependence, uncomplicated (principal); F14.20 Cocaine dependence, uncomplicated; F11.20 Opioid dependence, uncomplicated; F17.210 Nicotine dependence, cigarettes, uncomplicated; F19.282 Other psychoactive substance dependence with psychoactive substance-induced sleep disorder; F41.8 Other specified anxiety disorders; F32.A Depression, unspecified; E66.9 Obesity, unspecified; Z68.35 Body mass index [BMI] 35.0-35.9, adult
CPT/HCPCS: 36415; 86780; C9803-CS; U0003; U0005

== ENCOUNTER 2023-01-20 17:25 | Inpatient (IN) | payer OTHER ==
[2023-01-20 20:38] VITALS: BMI 35.4
[2023-01-20] MEDS ORDERED: guaiFENesin 600 MG TABLET.ER (FP) PO PRN (21:43)
[2023-01-20] MEDS ORDERED: IBUPROFEN 400 MG TABLET (FP) PO PRN (21:43)
[2023-01-20] MEDS ORDERED: IBUPROFEN 600 MG TABLET (FP) PO PRN (21:43)
[2023-01-20] MEDS ORDERED: BENZONATATE 200 MG CAPSULE PO PRN (21:43)
[2023-01-20] MEDS ORDERED: hydrOXYzine PAMOATE 25 MG CAPSULE (FP) PO PRN (21:43)
[2023-01-20] MEDS ORDERED: MAG HYDROX/AL HYDROX/SIMETH 30 ML UNIT-DOSE CUP PO PRN (21:43)
[2023-01-20] MEDS ORDERED: NALOXONE HCL 0.4 MG/ML VIAL IM PRN (21:43)
[2023-01-20] MEDS ORDERED: MAGNESIUM HYDROX 2400MG/30ML ORAL SUSPENSION 30 ML CUP PO PRN (21:43)
[2023-01-20] MEDS ORDERED: LOPERAMIDE HCL 2 MG CAPSULE PO PRN (21:43)
[2023-01-20] MEDS ORDERED: NALOXONE HCL (KLOXXADO) 8 MG SPRAY NS PRN (21:43)
[2023-01-20] MEDS ORDERED: BENZOCAINE/MENTHOL (CHLORASEPTIC ) LOZENGE MM PRN (21:43)
[2023-01-20] MEDS ORDERED: POLYETHYLENE GLYCOL (HEALTHYLAX) 3350 17 GM PACKET PO PRN (21:43)
[2023-01-20] MEDS ORDERED: ACETAMINOPHEN 325 MG TABLET (FP) ONE (22:19)
[2023-01-20] MEDS: ACETAMINOPHEN 325 MG TABLET (FP) PO PRN (22:25)
[2023-01-21] MEDS: MELATONIN 5 MG TABLETS PO SCH ×2 (02:34→21:31)
[2023-01-21] MEDS: THIAMINE HCL 100 MG TABLET (FP) PO SCH ×2 (02:34→21:31)
[2023-01-21] MEDS ORDERED: methaDONE HCL 10 MG TABLET PO ONE (10:09)
[2023-01-21] MEDS ORDERED: methaDONE HCL 40 MG DISPERSABLE TABLET ONE (10:34)
[2023-01-21 11:09] LABS: HEMATOCRIT 38.5 % (35.4-49); HEMOGLOBIN 12.9 GM/dL (11.7-16.9); MCH 27.5 pg (25.7-33.7); MCHC 33.5 g/dl (32.0-35.9); MEAN CELL VOLUME 82.2 fl (80-96); MEAN PLT VOLUME 7.9 fl (7.5-11.1); PLATELET COUNT 365 10^3/uL (134-434); RBC 4.68 M/mm3 (4.00-5.60); RDW 14.7 % (11.9-15.9); WHITE BLOOD COUNT 8.7 K/mm3 (4.0-10.0)
[2023-01-21 11:12] LABS: ALBUMIN 3.7 g/dl (3.4-5.0); BLOOD UREA NITROGEN 18.1 mg/dL (7-18); CALCIUM 9.2 mg/dL (8.5-10.1)
[2023-01-21 11:13] LABS: PH,URINE 5.5 (5.0-8.0); URINE APPEARANCE CLEAR; URINE BILIRUBIN NEGATIVE (NEGATIVE); URINE COLOR DK YELLOW; URINE GLUCOSE (UA) NEGATIVE (NEGATIVE); URINE KETONE NEGATIVE (NEGATIVE); URINE LEUK ESTERASE NEGATIVE (NEGATIVE); URINE NITRITE NEGATIVE (NEGATIVE); URINE PROTEIN TRACE (NEGATIVE); URINE UROBILINOGEN 0.2 mg/dL (0.2-1.0)
[2023-01-21 11:16] LABS: BILIRUBIN,TOTAL 0.3 mg/dL (0.2-1); CREATININE 0.9 mg/dL (0.55-1.3)
[2023-01-21] MEDS: PRENATAL VITAMINS W/ FOLIC ACID TABLET (FP) PO SCH (11:36)
[2023-01-21] MEDS: NICOTINE 14 MG/24 HOURS TOPICAL PATCH TD SCH (11:36)
[2023-01-21] MEDS ORDERED: TUBERCULIN PPD 5 TU/0.1ML VIAL ID ONE (14:25)
[2023-01-22] MEDS ORDERED: methaDONE HCL 10 MG TABLET PO SCH (06:00)
[2023-01-22] MEDS: PRENATAL VITAMINS W/ FOLIC ACID TABLET (FP) PO SCH (09:54)
[2023-01-22] MEDS: NICOTINE 14 MG/24 HOURS TOPICAL PATCH TD SCH (09:56)
[2023-01-22] MEDS: THIAMINE HCL 100 MG TABLET (FP) PO SCH (21:53)
[2023-01-22] MEDS: MELATONIN 5 MG TABLETS PO SCH (21:53)
[2023-01-23] MEDS: PRENATAL VITAMINS W/ FOLIC ACID TABLET (FP) PO SCH (10:29)
[2023-01-23] MEDS: NICOTINE 14 MG/24 HOURS TOPICAL PATCH TD SCH (10:29)
[2023-01-23] MEDS: NICOTINE POLACRILEX 4 MG GUM BUC PRN (14:50)
[2023-01-23] MEDS: MELATONIN 5 MG TABLETS PO SCH (21:34)
[2023-01-23] MEDS: THIAMINE HCL 100 MG TABLET (FP) PO SCH (21:34)
[2023-01-24] MEDS: NICOTINE 14 MG/24 HOURS TOPICAL PATCH TD SCH (09:36)
[2023-01-24] MEDS: PRENATAL VITAMINS W/ FOLIC ACID TABLET (FP) PO SCH (09:36)
[2023-01-24] MEDS: THIAMINE HCL 100 MG TABLET (FP) PO SCH (22:50)
[2023-01-24] MEDS: MELATONIN 5 MG TABLETS PO SCH (22:50)
[2023-01-25] MEDS: NICOTINE 14 MG/24 HOURS TOPICAL PATCH TD SCH (10:07)
[2023-01-25] MEDS: PRENATAL VITAMINS W/ FOLIC ACID TABLET (FP) PO SCH (10:07)
[2023-01-25] MEDS: NICOTINE POLACRILEX 4 MG GUM BUC PRN (10:07)
[2023-01-25] MEDS: MELATONIN 5 MG TABLETS PO SCH (21:58)
[2023-01-25] MEDS: THIAMINE HCL 100 MG TABLET (FP) PO SCH (21:58)
[2023-01-26] MEDS: PRENATAL VITAMINS W/ FOLIC ACID TABLET (FP) PO SCH (09:45)
[2023-01-26] MEDS: NICOTINE 14 MG/24 HOURS TOPICAL PATCH TD SCH (09:45)
[2023-01-26] MEDS: NICOTINE 10 MG CARTRIDGE (INHALER) IH PRN (12:09)
[2023-01-26] MEDS: THIAMINE HCL 100 MG TABLET (FP) PO SCH (22:11)
[2023-01-26] MEDS: MELATONIN 5 MG TABLETS PO SCH (22:11)
[2023-01-27] MEDS: NICOTINE 10 MG CARTRIDGE (INHALER) IH PRN ×3 (06:09→21:16)
[2023-01-27] MEDS: PRENATAL VITAMINS W/ FOLIC ACID TABLET (FP) PO SCH (10:11)
[2023-01-27] MEDS: NICOTINE 14 MG/24 HOURS TOPICAL PATCH TD SCH (10:12)
[2023-01-27] MEDS: NICOTINE POLACRILEX 4 MG GUM BUC PRN (10:12)
[2023-01-27] MEDS: THIAMINE HCL 100 MG TABLET (FP) PO SCH (21:16)
[2023-01-27] MEDS: MELATONIN 5 MG TABLETS PO SCH (21:16)
[2023-01-28] MEDS: NICOTINE 10 MG CARTRIDGE (INHALER) IH PRN ×2 (05:57→10:16)
[2023-01-28] MEDS: NICOTINE 14 MG/24 HOURS TOPICAL PATCH TD SCH (10:16)
[2023-01-28] MEDS: PRENATAL VITAMINS W/ FOLIC ACID TABLET (FP) PO SCH (10:16)
[2023-01-28] MEDS: NICOTINE POLACRILEX 4 MG GUM BUC PRN (10:17)
[2023-01-28] MEDS: MELATONIN 5 MG TABLETS PO SCH (22:04)
[2023-01-28] MEDS: THIAMINE HCL 100 MG TABLET (FP) PO SCH (22:04)
[2023-01-29] MEDS: NICOTINE 10 MG CARTRIDGE (INHALER) IH PRN (05:57)
[2023-01-29] MEDS: NICOTINE POLACRILEX 4 MG GUM BUC PRN ×3 (07:09→17:34)
[2023-01-29] MEDS: PRENATAL VITAMINS W/ FOLIC ACID TABLET (FP) PO SCH (09:52)
[2023-01-29] MEDS: NICOTINE 14 MG/24 HOURS TOPICAL PATCH TD SCH (09:52)
[2023-01-29] MEDS: THIAMINE HCL 100 MG TABLET (FP) PO SCH (22:25)
[2023-01-29] MEDS: MELATONIN 5 MG TABLETS PO SCH (22:25)
[2023-01-30] MEDS: NICOTINE POLACRILEX 4 MG GUM BUC PRN (06:08)
[2023-01-30] MEDS: PRENATAL VITAMINS W/ FOLIC ACID TABLET (FP) PO SCH (10:32)
[2023-01-30] MEDS: NICOTINE 14 MG/24 HOURS TOPICAL PATCH TD SCH (10:34)
[2023-01-30] MEDS: MELATONIN 5 MG TABLETS PO SCH (22:02)
[2023-01-30] MEDS: THIAMINE HCL 100 MG TABLET (FP) PO SCH (22:02)
[2023-01-31] MEDS: PRENATAL VITAMINS W/ FOLIC ACID TABLET (FP) PO SCH (10:14)
[2023-01-31] MEDS: NICOTINE 14 MG/24 HOURS TOPICAL PATCH TD SCH (10:15)
[2023-01-31] MEDS: NICOTINE POLACRILEX 4 MG GUM BUC PRN (10:16)
[2023-01-31] MEDS: THIAMINE HCL 100 MG TABLET (FP) PO SCH (22:03)
[2023-01-31] MEDS: MELATONIN 5 MG TABLETS PO SCH (22:04)
[2023-02-01] MEDS: NICOTINE POLACRILEX 4 MG GUM BUC PRN ×2 (06:08→10:13)
[2023-02-01] MEDS: PRENATAL VITAMINS W/ FOLIC ACID TABLET (FP) PO SCH (10:12)
[2023-02-01] MEDS: NICOTINE 14 MG/24 HOURS TOPICAL PATCH TD SCH (10:13)
[2023-02-01] MEDS: ACETAMINOPHEN 325 MG TABLET (FP) PO PRN (15:37)
[2023-02-01] MEDS: THIAMINE HCL 100 MG TABLET (FP) PO SCH (21:43)
[2023-02-01] MEDS: MELATONIN 5 MG TABLETS PO SCH (21:43)
[2023-02-02] MEDS: NICOTINE POLACRILEX 4 MG GUM BUC PRN ×2 (06:13→10:13)
[2023-02-02] MEDS: NICOTINE 14 MG/24 HOURS TOPICAL PATCH TD SCH (10:12)
[2023-02-02] MEDS: PRENATAL VITAMINS W/ FOLIC ACID TABLET (FP) PO SCH (10:12)
[2023-02-02] MEDS: MELATONIN 5 MG TABLETS PO SCH (21:32)
[2023-02-02] MEDS: THIAMINE HCL 100 MG TABLET (FP) PO SCH (21:32)
[2023-02-03] MEDS: NICOTINE POLACRILEX 4 MG GUM BUC PRN ×2 (06:21→09:39)
[2023-02-03 06:50] VITALS: RESP 18; TEMP 97.1
[2023-02-03] MEDS: PRENATAL VITAMINS W/ FOLIC ACID TABLET (FP) PO SCH (09:39)
[2023-02-03] MEDS: NICOTINE 14 MG/24 HOURS TOPICAL PATCH TD SCH (09:39)
[2023-02-03] MEDS: ACETAMINOPHEN 325 MG TABLET (FP) PO PRN (19:03)
[2023-02-03] MEDS: THIAMINE HCL 100 MG TABLET (FP) PO SCH (21:31)
[2023-02-03] MEDS: MELATONIN 5 MG TABLETS PO SCH (21:31)
[2023-02-04] MEDS: NICOTINE POLACRILEX 4 MG GUM BUC PRN (06:01)
[2023-02-04 07:11] VITALS: BP 105/66; PULSE 60
== END 2023-02-04 09:38 | disposition home or self-care (01) | DRG 772 ==
LOC: YASAS 17:25 → Y3W 22:37
PROVIDERS: ADMIT Allergy & Immunology; ATTEND Family Medicine
PROC: HZ42ZZZ Group Counseling for Substance Abuse Treatment, Cognitive-Behavioral (ICD-10-PCS; principal; 2023-01-20)
DX: F11.20 Opioid dependence, uncomplicated (principal); F13.20 Sedative, hypnotic or anxiolytic dependence, uncomplicated; F14.20 Cocaine dependence, uncomplicated; F17.210 Nicotine dependence, cigarettes, uncomplicated; F19.282 Other psychoactive substance dependence with psychoactive substance-induced sleep disorder; F41.8 Other specified anxiety disorders; E66.09 Other obesity due to excess calories; Z68.35 Body mass index [BMI] 35.0-35.9, adult
CPT/HCPCS: 36415; 80053; 81003; 85027; 86780; C9803-CS; U0003; U0005

== ENCOUNTER 2023-07-16 11:20 | Inpatient (IN) | payer OTHER ==
[2023-07-16 11:56] VITALS: BMI 39.1
[2023-07-16] MEDS ORDERED: POLYETHYLENE GLYCOL (HEALTHYLAX) 3350 17 GM PACKET PO PRN (13:38)
[2023-07-16] MEDS ORDERED: MAGNESIUM HYDROX 2400MG/30ML ORAL SUSPENSION 30 ML CUP PO PRN (13:38)
[2023-07-16] MEDS ORDERED: IBUPROFEN 400 MG TABLET (FP) PO PRN (13:38)
[2023-07-16] MEDS ORDERED: MAG HYDROX/AL HYDROX/SIMETH 30 ML UNIT-DOSE CUP PO PRN (13:38)
[2023-07-16] MEDS ORDERED: ACETAMINOPHEN 325 MG TABLET (FP) PO PRN (13:38)
[2023-07-16] MEDS ORDERED: BISMUTH SUBSALICYLATE 524 MG/30 ML PO PRN (13:38)
[2023-07-16] MEDS ORDERED: IBUPROFEN 600 MG TABLET (FP) PO PRN (13:38)
[2023-07-16] MEDS ORDERED: BENZONATATE 200 MG CAPSULE PO PRN (13:38)
[2023-07-16] MEDS ORDERED: LOPERAMIDE HCL 2 MG CAPSULE PO PRN (13:38)
[2023-07-16] MEDS ORDERED: BENZOCAINE/MENTHOL (CHLORASEPTIC ) LOZENGE MM PRN (13:38)
[2023-07-16] MEDS ORDERED: DICYCLOMINE HCL 10 MG CAPSULE PO PRN (13:38)
[2023-07-16] MEDS ORDERED: guaiFENesin 600 MG TABLET.ER (FP) PO PRN (13:38)
[2023-07-16] MEDS ORDERED: NALOXONE HCL (KLOXXADO) 8 MG SPRAY NS PRN (13:38)
[2023-07-16] MEDS ORDERED: ONDANSETRON *ODT* 4 MG TABLET SL PRN (13:38)
[2023-07-16] MEDS ORDERED: NALOXONE HCL 0.4 MG/ML VIAL IM PRN (13:38)
[2023-07-16] MEDS: PRENATAL VITAMINS W/ FOLIC ACID TABLET (FP) PO SCH (16:18)
[2023-07-16] MEDS: NICOTINE 14 MG/24 HOURS TOPICAL PATCH TD SCH (16:36)
[2023-07-16] MEDS: diazePAM 5 MG TABLET PO SCH ×2 (17:21→21:59)
[2023-07-16] MEDS: hydrOXYzine PAMOATE 25 MG CAPSULE (FP) PO PRN (17:22)
[2023-07-16] MEDS: diazePAM 5 MG TABLET PO PRN (19:30)
[2023-07-16] MEDS: MELATONIN 5 MG TABLETS PO SCH (21:57)
[2023-07-16] MEDS: THIAMINE HCL 100 MG TABLET (FP) PO SCH (21:57)
[2023-07-17] MEDS: diazePAM 5 MG TABLET PO PRN ×3 (00:33→19:56)
[2023-07-17] MEDS: diazePAM 5 MG TABLET PO SCH ×4 (05:30→22:06)
[2023-07-17] MEDS ORDERED: methaDONE HCL 10 MG TABLET PO SCH (08:45)
[2023-07-17] MEDS: NICOTINE 14 MG/24 HOURS TOPICAL PATCH TD SCH (10:11)
[2023-07-17] MEDS: PRENATAL VITAMINS W/ FOLIC ACID TABLET (FP) PO SCH (10:11)
[2023-07-17] MEDS: NICOTINE 10 MG CARTRIDGE (INHALER) IH SCH (11:20)
[2023-07-17 11:41] LABS: HEMATOCRIT 35.6 % (35.4-49); HEMOGLOBIN 11.7 GM/dL (11.7-16.9); MCHC 32.9 g/dl (32.0-35.9); MEAN CELL VOLUME 85.2 fl (80-96); PLATELET COUNT 248 10^3/uL (134-434); RBC 4.18 M/mm3 (4.00-5.60); RDW 14.1 % (11.9-15.9)
[2023-07-17 11:51] LABS: POTASSIUM 4.4 mmol/L (3.5-5.1)
[2023-07-17 11:53] LABS: CALCIUM 8.1 mg/dL (8.5-10.1)
[2023-07-17 11:54] LABS: BLOOD UREA NITROGEN 18.3 mg/dL (7-18)
[2023-07-17 11:57] LABS: CREATININE 0.8 mg/dL (0.55-1.3)
[2023-07-17 11:58] LABS: BILIRUBIN,TOTAL 0.1 mg/dL (0.2-1); TOT PROT 5.7 g/dl (6.4-8.2)
[2023-07-17] MEDS: NICOTINE POLACRILEX 2 MG GUM BUC PRN (12:30)
[2023-07-17] MEDS: LACTULOSE 20 GM/30 ML UDC (FOR ORAL USE ONLY) PO SCH ×2 (13:32→22:03)
[2023-07-17] MEDS: hydrOXYzine PAMOATE 25 MG CAPSULE (FP) PO PRN (22:04)
[2023-07-17] MEDS: METHOCARBAMOL 500 MG TABLET PO PRN (22:04)
[2023-07-17] MEDS: THIAMINE HCL 100 MG TABLET (FP) PO SCH (22:04)
[2023-07-17] MEDS: MELATONIN 5 MG TABLETS PO SCH (22:04)
[2023-07-18] MEDS: LACTULOSE 20 GM/30 ML UDC (FOR ORAL USE ONLY) PO SCH ×3 (05:36→22:16)
[2023-07-18] MEDS: diazePAM 5 MG TABLET PO SCH ×3 (05:36→22:18)
[2023-07-18] MEDS: PRENATAL VITAMINS W/ FOLIC ACID TABLET (FP) PO SCH (10:08)
[2023-07-18] MEDS: NICOTINE POLACRILEX 2 MG GUM BUC PRN (10:09)
[2023-07-18] MEDS: diazePAM 5 MG TABLET PO PRN ×2 (10:12→17:53)
[2023-07-18] MEDS: NICOTINE 14 MG/24 HOURS TOPICAL PATCH TD SCH (10:42)
[2023-07-18] MEDS: NICOTINE 10 MG CARTRIDGE (INHALER) IH SCH (10:42)
[2023-07-18] MEDS: THIAMINE HCL 100 MG TABLET (FP) PO SCH (22:16)
[2023-07-18] MEDS: MELATONIN 5 MG TABLETS PO SCH (22:16)
[2023-07-18] MEDS: METHOCARBAMOL 500 MG TABLET PO PRN (22:17)
[2023-07-18] MEDS: hydrOXYzine PAMOATE 25 MG CAPSULE (FP) PO PRN (22:17)
[2023-07-19] MEDS: diazePAM 5 MG TABLET PO PRN (01:48)
[2023-07-19] MEDS: diazePAM 5 MG TABLET PO SCH ×2 (05:56→17:20)
[2023-07-19] MEDS: LACTULOSE 20 GM/30 ML UDC (FOR ORAL USE ONLY) PO SCH ×3 (05:57→21:42)
[2023-07-19] MEDS: NICOTINE POLACRILEX 2 MG GUM BUC PRN ×2 (06:00→10:20)
[2023-07-19] MEDS: PRENATAL VITAMINS W/ FOLIC ACID TABLET (FP) PO SCH (09:46)
[2023-07-19] MEDS: NICOTINE 14 MG/24 HOURS TOPICAL PATCH TD SCH (09:49)
[2023-07-19] MEDS: THIAMINE HCL 100 MG TABLET (FP) PO SCH (21:42)
[2023-07-19] MEDS: hydrOXYzine PAMOATE 25 MG CAPSULE (FP) PO PRN (21:42)
[2023-07-19] MEDS: MELATONIN 5 MG TABLETS PO SCH (21:42)
[2023-07-19] MEDS: METHOCARBAMOL 500 MG TABLET PO PRN (21:42)
[2023-07-20] MEDS: LACTULOSE 20 GM/30 ML UDC (FOR ORAL USE ONLY) PO SCH (05:22)
[2023-07-20] MEDS: NICOTINE POLACRILEX 2 MG GUM BUC PRN (05:53)
[2023-07-20] MEDS ORDERED: diazePAM 5 MG TABLET PO ONE (06:00)
[2023-07-20 06:01] VITALS: BP 121/70; PULSE 67; RESP 18; TEMP 97.5
== END 2023-07-20 08:37 | disposition home or self-care (01) | DRG 773 ==
LOC: MERGE 11:20 → YASAS 11:20 → Y3N 14:28
PROVIDERS: ADMIT Allergy & Immunology; ATTEND Surgery
PROC: HZ2ZZZZ Detoxification Services for Substance Abuse Treatment (ICD-10-PCS; principal; 2023-07-16)
DX: F10.230 Alcohol dependence with withdrawal, uncomplicated (principal); F11.20 Opioid dependence, uncomplicated; F13.20 Sedative, hypnotic or anxiolytic dependence, uncomplicated; F14.20 Cocaine dependence, uncomplicated; F17.210 Nicotine dependence, cigarettes, uncomplicated; R79.89 Other specified abnormal findings of blood chemistry; E66.09 Other obesity due to excess calories; Z68.32 Body mass index [BMI] 32.0-32.9, adult; Z59.01 Sheltered homelessness
CPT/HCPCS: 36415; 80053; 82140; 85027; 86780; 87635; 87811

== ENCOUNTER 2023-08-12 10:24 | Inpatient (IN) | payer OTHER ==
[2023-08-12 12:02] VITALS: BMI 47.4
[2023-08-12] MEDS ORDERED: guaiFENesin 600 MG TABLET.ER (FP) PO PRN (13:01)
[2023-08-12] MEDS ORDERED: LOPERAMIDE HCL 2 MG CAPSULE PO PRN (13:01)
[2023-08-12] MEDS ORDERED: BENZOCAINE/MENTHOL (CHLORASEPTIC ) LOZENGE MM PRN (13:01)
[2023-08-12] MEDS ORDERED: NALOXONE HCL 0.4 MG/ML VIAL IM PRN (13:01)
[2023-08-12] MEDS ORDERED: hydrOXYzine PAMOATE 25 MG CAPSULE (FP) PO PRN (13:01)
[2023-08-12] MEDS ORDERED: MAG HYDROX/AL HYDROX/SIMETH 30 ML UNIT-DOSE CUP PO PRN (13:01)
[2023-08-12] MEDS ORDERED: ACETAMINOPHEN 325 MG TABLET (FP) PO PRN (13:01)
[2023-08-12] MEDS ORDERED: NALOXONE HCL (KLOXXADO) 8 MG SPRAY NS PRN (13:01)
[2023-08-12] MEDS ORDERED: BENZONATATE 200 MG CAPSULE PO PRN (13:01)
[2023-08-12] MEDS ORDERED: IBUPROFEN 400 MG TABLET (FP) PO PRN (13:01)
[2023-08-12] MEDS ORDERED: MAGNESIUM HYDROX 2400MG/30ML ORAL SUSPENSION 30 ML CUP PO PRN (13:01)
[2023-08-12] MEDS ORDERED: POLYETHYLENE GLYCOL (HEALTHYLAX) 3350 17 GM PACKET PO PRN (13:01)
[2023-08-12] MEDS ORDERED: COLLOIDAL OATMEAL 1 BAR EACH TP PRN (13:01)
[2023-08-12] MEDS: PRENATAL VITAMINS W/ FOLIC ACID TABLET (FP) PO SCH (14:11)
[2023-08-12 21:15] LABS: PH,URINE 5.5 (5.0-8.0); URINE APPEARANCE CLEAR; URINE BILIRUBIN NEGATIVE (NEGATIVE); URINE COLOR YELLOW; URINE GLUCOSE (UA) NEGATIVE (NEGATIVE); URINE KETONE NEGATIVE (NEGATIVE); URINE LEUK ESTERASE NEGATIVE (NEGATIVE); URINE NITRITE NEGATIVE (NEGATIVE); URINE PROTEIN NEGATIVE (NEGATIVE); URINE UROBILINOGEN 0.2 mg/dL (0.2-1.0)
[2023-08-12] MEDS: MELATONIN 5 MG TABLETS PO SCH (22:04)
[2023-08-12] MEDS: THIAMINE HCL 100 MG TABLET (FP) PO SCH (22:04)
[2023-08-13] MEDS: methaDONE HCL 40 MG DISPERSABLE TABLET PO SCH (09:04)
[2023-08-13] MEDS: PRENATAL VITAMINS W/ FOLIC ACID TABLET (FP) PO SCH (09:07)
[2023-08-13] MEDS ORDERED: NICOTINE 14 MG/24 HOURS TOPICAL PATCH TD PRN (10:35)
[2023-08-13 11:06] LABS: HEMATOCRIT 38.1 % (35.4-49); HEMOGLOBIN 12.4 GM/dL (11.7-16.9); MCH 27.7 pg (25.7-33.7); MCHC 32.6 g/dl (32.0-35.9); MEAN CELL VOLUME 84.8 fl (80-96); MEAN PLT VOLUME 7.9 fl (7.5-11.1); PLATELET COUNT 364 10^3/uL (134-434); RDW 13.8 % (11.9-15.9); WHITE BLOOD COUNT 8.4 K/mm3 (4.0-10.0)
[2023-08-13 11:51] LABS: POTASSIUM 4.5 mmol/L (3.5-5.1)
[2023-08-13 12:18] LABS: ALBUMIN 3.5 g/dl (3.4-5.0); BLOOD UREA NITROGEN 15.9 mg/dL (7-18)
[2023-08-13 12:21] LABS: CREATININE 0.9 mg/dL (0.55-1.3); TOT PROT 6.7 g/dl (6.4-8.2)
[2023-08-13 12:22] LABS: BILIRUBIN,TOTAL 0.4 mg/dL (0.2-1)
[2023-08-13 13:12] LABS: SYPHILIS W/ RPR CONF NON-REACTIVE (NONREACTIVE)
[2023-08-13] MEDS: MELATONIN 5 MG TABLETS PO SCH (22:05)
[2023-08-13] MEDS: THIAMINE HCL 100 MG TABLET (FP) PO SCH (22:05)
[2023-08-14] MEDS: methaDONE HCL 40 MG DISPERSABLE TABLET PO SCH (06:09)
[2023-08-14] MEDS: NICOTINE POLACRILEX 4 MG GUM BUC PRN (06:11)
[2023-08-14] MEDS: PRENATAL VITAMINS W/ FOLIC ACID TABLET (FP) PO SCH (10:33)
[2023-08-14] MEDS: THIAMINE HCL 100 MG TABLET (FP) PO SCH (21:32)
[2023-08-14] MEDS: MELATONIN 5 MG TABLETS PO SCH (21:32)
[2023-08-15] MEDS: methaDONE HCL 40 MG DISPERSABLE TABLET PO SCH (06:20)
[2023-08-15] MEDS: NICOTINE POLACRILEX 4 MG GUM BUC PRN ×2 (06:23→10:10)
[2023-08-15] MEDS: IBUPROFEN 600 MG TABLET (FP) PO PRN (10:10)
[2023-08-15] MEDS: PRENATAL VITAMINS W/ FOLIC ACID TABLET (FP) PO SCH (10:40)
[2023-08-15] MEDS: MELATONIN 5 MG TABLETS PO SCH (21:29)
[2023-08-15] MEDS: THIAMINE HCL 100 MG TABLET (FP) PO SCH (21:30)
[2023-08-16] MEDS: methaDONE HCL 40 MG DISPERSABLE TABLET PO SCH (05:53)
[2023-08-16] MEDS: NICOTINE POLACRILEX 4 MG GUM BUC PRN ×2 (05:54→09:39)
[2023-08-16] MEDS: PRENATAL VITAMINS W/ FOLIC ACID TABLET (FP) PO SCH (09:38)
[2023-08-16] MEDS: MELATONIN 5 MG TABLETS PO SCH (21:38)
[2023-08-16] MEDS: THIAMINE HCL 100 MG TABLET (FP) PO SCH (21:38)
[2023-08-17] MEDS: methaDONE HCL 40 MG DISPERSABLE TABLET PO SCH (06:08)
[2023-08-17] MEDS: NICOTINE POLACRILEX 4 MG GUM BUC PRN ×2 (06:09→10:16)
[2023-08-17] MEDS: PRENATAL VITAMINS W/ FOLIC ACID TABLET (FP) PO SCH (10:16)
[2023-08-17] MEDS: MELATONIN 5 MG TABLETS PO SCH (21:26)
[2023-08-17] MEDS: THIAMINE HCL 100 MG TABLET (FP) PO SCH (21:27)
[2023-08-18] MEDS: methaDONE HCL 40 MG DISPERSABLE TABLET PO SCH (06:11)
[2023-08-18] MEDS: NICOTINE POLACRILEX 4 MG GUM BUC PRN ×2 (06:13→09:43)
[2023-08-18] MEDS: PRENATAL VITAMINS W/ FOLIC ACID TABLET (FP) PO SCH (09:43)
[2023-08-18] MEDS: MELATONIN 5 MG TABLETS PO SCH (21:28)
[2023-08-18] MEDS: THIAMINE HCL 100 MG TABLET (FP) PO SCH (21:28)
[2023-08-19] MEDS: methaDONE HCL 40 MG DISPERSABLE TABLET PO SCH (06:13)
[2023-08-19] MEDS: NICOTINE POLACRILEX 4 MG GUM BUC PRN ×2 (06:15→09:18)
[2023-08-19] MEDS: IBUPROFEN 600 MG TABLET (FP) PO PRN (09:18)
[2023-08-19] MEDS: PRENATAL VITAMINS W/ FOLIC ACID TABLET (FP) PO SCH (09:18)
[2023-08-19] MEDS: THIAMINE HCL 100 MG TABLET (FP) PO SCH (21:29)
[2023-08-19] MEDS: MELATONIN 5 MG TABLETS PO SCH (21:29)
[2023-08-20] MEDS: NICOTINE POLACRILEX 4 MG GUM BUC PRN ×2 (05:57→09:35)
[2023-08-20] MEDS: methaDONE HCL 40 MG DISPERSABLE TABLET PO SCH (05:57)
[2023-08-20] MEDS: PRENATAL VITAMINS W/ FOLIC ACID TABLET (FP) PO SCH (09:35)
[2023-08-20] MEDS: THIAMINE HCL 100 MG TABLET (FP) PO SCH (21:34)
[2023-08-20] MEDS: MELATONIN 5 MG TABLETS PO SCH (21:34)
[2023-08-21] MEDS: methaDONE HCL 40 MG DISPERSABLE TABLET PO SCH (06:00)
[2023-08-21] MEDS: NICOTINE POLACRILEX 4 MG GUM BUC PRN ×2 (06:01→09:59)
[2023-08-21] MEDS: PRENATAL VITAMINS W/ FOLIC ACID TABLET (FP) PO SCH (09:59)
[2023-08-21] MEDS: MELATONIN 5 MG TABLETS PO SCH (21:42)
[2023-08-21] MEDS: THIAMINE HCL 100 MG TABLET (FP) PO SCH (21:42)
[2023-08-22] MEDS: methaDONE HCL 40 MG DISPERSABLE TABLET PO SCH (06:00)
[2023-08-22] MEDS: NICOTINE POLACRILEX 4 MG GUM BUC PRN ×2 (06:02→09:28)
[2023-08-22] MEDS: PRENATAL VITAMINS W/ FOLIC ACID TABLET (FP) PO SCH (09:28)
[2023-08-22 10:23] VITALS: RESP 18
[2023-08-22] MEDS: IBUPROFEN 600 MG TABLET (FP) PO PRN ×2 (12:03→18:47)
[2023-08-22] MEDS: THIAMINE HCL 100 MG TABLET (FP) PO SCH (21:33)
[2023-08-22] MEDS: MELATONIN 5 MG TABLETS PO SCH (21:33)
[2023-08-23] MEDS: methaDONE HCL 40 MG DISPERSABLE TABLET PO SCH (06:08)
[2023-08-23] MEDS: NICOTINE POLACRILEX 4 MG GUM BUC PRN ×3 (06:09→15:03)
[2023-08-23] MEDS: PRENATAL VITAMINS W/ FOLIC ACID TABLET (FP) PO SCH (10:06)
[2023-08-23] MEDS: MELATONIN 5 MG TABLETS PO SCH (21:24)
[2023-08-23] MEDS: THIAMINE HCL 100 MG TABLET (FP) PO SCH (21:24)
[2023-08-24] MEDS: methaDONE HCL 40 MG DISPERSABLE TABLET PO SCH (06:04)
[2023-08-24 07:24] VITALS: BP 116/73; PULSE 60; TEMP 97.7
== END 2023-08-24 08:56 | disposition home or self-care (01) | DRG 772 ==
LOC: YASAS 10:24 → Y3W 15:36
PROVIDERS: ADMIT Allergy & Immunology; ATTEND Psychiatry & Neurology Pain Medicine
PROC: HZ42ZZZ Group Counseling for Substance Abuse Treatment, Cognitive-Behavioral (ICD-10-PCS; principal; 2023-08-12)
DX: F10.20 Alcohol dependence, uncomplicated (principal); F13.20 Sedative, hypnotic or anxiolytic dependence, uncomplicated; F11.20 Opioid dependence, uncomplicated; F14.20 Cocaine dependence, uncomplicated; F17.210 Nicotine dependence, cigarettes, uncomplicated; F19.282 Other psychoactive substance dependence with psychoactive substance-induced sleep disorder; F41.9 Anxiety disorder, unspecified; E66.09 Other obesity due to excess calories; Z68.32 Body mass index [BMI] 32.0-32.9, adult
CPT/HCPCS: 36415; 80053; 80307; 81003; 85027; 86780; 86803; 87635; 87811

== ENCOUNTER 2023-09-23 13:21 | Inpatient (IN) | payer OTHER ==
[2023-09-23 13:51] VITALS: BMI 41.0
[2023-09-23] MEDS ORDERED: MAG HYDROX/AL HYDROX/SIMETH 30 ML UNIT-DOSE CUP PO PRN (14:32)
[2023-09-23] MEDS ORDERED: BISMUTH SUBSALICYLATE 524 MG/30 ML PO PRN (14:32)
[2023-09-23] MEDS ORDERED: guaiFENesin 600 MG TABLET.ER (FP) PO PRN (14:32)
[2023-09-23] MEDS ORDERED: NALOXONE HCL (KLOXXADO) 8 MG SPRAY NS PRN (14:32)
[2023-09-23] MEDS ORDERED: IBUPROFEN 600 MG TABLET (FP) PO PRN (14:32)
[2023-09-23] MEDS ORDERED: BENZONATATE 200 MG CAPSULE PO PRN (14:32)
[2023-09-23] MEDS ORDERED: BENZOCAINE/MENTHOL (CHLORASEPTIC ) LOZENGE MM PRN (14:32)
[2023-09-23] MEDS ORDERED: diazePAM 5 MG TABLET PO ONE (14:32)
[2023-09-23] MEDS ORDERED: DICYCLOMINE HCL 10 MG CAPSULE PO PRN (14:32)
[2023-09-23] MEDS ORDERED: ONDANSETRON *ODT* 4 MG TABLET SL PRN (14:32)
[2023-09-23] MEDS ORDERED: NALOXONE HCL 0.4 MG/ML VIAL IM PRN (14:32)
[2023-09-23] MEDS ORDERED: LOPERAMIDE HCL 2 MG CAPSULE PO PRN (14:32)
[2023-09-23] MEDS ORDERED: MAGNESIUM HYDROX 2400MG/30ML ORAL SUSPENSION 30 ML CUP PO PRN (14:32)
[2023-09-23] MEDS ORDERED: POLYETHYLENE GLYCOL (HEALTHYLAX) 3350 17 GM PACKET PO PRN (14:32)
[2023-09-23] MEDS: NICOTINE 14 MG/24 HOURS TOPICAL PATCH TD SCH (15:13)
[2023-09-23] MEDS: PRENATAL VITAMINS W/ FOLIC ACID TABLET (FP) PO SCH (15:13)
[2023-09-23] MEDS ORDERED: PRENATAL VITAMINS W/ FOLIC ACID TABLET (FP) PO ONE (15:16)
[2023-09-23] MEDS ORDERED: diazePAM 5 MG TABLET ONE (15:16)
[2023-09-23] MEDS ORDERED: METHOCARBAMOL 500 MG TABLET ONE (15:16)
[2023-09-23] MEDS ORDERED: NICOTINE 14 MG/24 HOURS TOPICAL PATCH TD ONE (15:16)
[2023-09-23] MEDS: diazePAM 5 MG TABLET PO SCH ×2 (17:39→22:30)
[2023-09-23] MEDS: ACETAMINOPHEN 325 MG TABLET (FP) PO PRN (20:17)
[2023-09-23] MEDS: METHOCARBAMOL 500 MG TABLET PO PRN (22:30)
[2023-09-23] MEDS: MELATONIN 5 MG TABLETS PO SCH (22:30)
[2023-09-23] MEDS: THIAMINE HCL 100 MG TABLET (FP) PO SCH (22:32)
[2023-09-24] MEDS: IBUPROFEN 400 MG TABLET (FP) PO PRN ×2 (00:37→17:30)
[2023-09-24] MEDS: diazePAM 5 MG TABLET PO PRN (02:04)
[2023-09-24] MEDS: diazePAM 5 MG TABLET PO SCH ×4 (05:35→22:40)
[2023-09-24] MEDS ORDERED: methaDONE HCL 10 MG TABLET PO SCH (10:15)
[2023-09-24] MEDS: NICOTINE 14 MG/24 HOURS TOPICAL PATCH TD SCH (10:21)
[2023-09-24] MEDS: PRENATAL VITAMINS W/ FOLIC ACID TABLET (FP) PO SCH (10:21)
[2023-09-24] MEDS: hydrOXYzine PAMOATE 25 MG CAPSULE (FP) PO PRN (10:23)
[2023-09-24 11:21] LABS: HEMATOCRIT 36.9 % (35.4-49); HEMOGLOBIN 12.3 GM/dL (11.7-16.9); MCH 27.8 pg (25.7-33.7); MCHC 33.3 g/dl (32.0-35.9); MEAN CELL VOLUME 83.4 fl (80-96); MEAN PLT VOLUME 7.5 fl (7.5-11.1); PLATELET COUNT 321 10^3/uL (134-434); RBC 4.43 M/mm3 (4.00-5.60); RDW 13.8 % (11.9-15.9); WHITE BLOOD COUNT 8.2 K/mm3 (4.0-10.0)
[2023-09-24 11:40] LABS: CHLORIDE 104 mmol/L (98-107); POTASSIUM 4.2 mmol/L (3.5-5.1); SODIUM 139 mmol/L (136-145)
[2023-09-24 11:48] LABS: CALCIUM 8.3 mg/dL (8.5-10.1)
[2023-09-24 11:49] LABS: ALBUMIN 3.1 g/dl (3.4-5.0); ANION GAP 5 mmol/L (4-13); CO2 30 mmol/L (21-32); GLUCOSE,RANDOM 78 mg/dL (74-106)
[2023-09-24 11:52] LABS: CREATININE 0.7 mg/dL (0.55-1.3); SGOT/AST 24 U/L (15-37); SGPT/ALT 17 U/L (13-61)
[2023-09-24 11:54] LABS: BILIRUBIN,TOTAL 0.6 mg/dL (0.2-1); TOT PROT 6.2 g/dl (6.4-8.2)
[2023-09-24 11:55] LABS: ALK PHOS 74 U/L (45-117)
[2023-09-24] MEDS: NICOTINE POLACRILEX 2 MG GUM BUC PRN (12:37)
[2023-09-24] MEDS: METHOCARBAMOL 500 MG TABLET PO PRN (17:30)
[2023-09-24] MEDS: THIAMINE HCL 100 MG TABLET (FP) PO SCH (22:39)
[2023-09-24] MEDS: MELATONIN 5 MG TABLETS PO SCH (22:40)
[2023-09-25] MEDS: METHOCARBAMOL 500 MG TABLET PO PRN ×2 (03:55→22:05)
[2023-09-25] MEDS: diazePAM 5 MG TABLET PO SCH ×3 (06:02→22:05)
[2023-09-25] MEDS: PRENATAL VITAMINS W/ FOLIC ACID TABLET (FP) PO SCH (10:27)
[2023-09-25] MEDS: NICOTINE 14 MG/24 HOURS TOPICAL PATCH TD SCH (10:27)
[2023-09-25] MEDS: diazePAM 5 MG TABLET PO PRN ×2 (10:29→17:31)
[2023-09-25] MEDS: THIAMINE HCL 100 MG TABLET (FP) PO SCH (22:05)
[2023-09-25] MEDS: hydrOXYzine PAMOATE 25 MG CAPSULE (FP) PO PRN (22:05)
[2023-09-25] MEDS: MELATONIN 5 MG TABLETS PO SCH (22:05)
[2023-09-26] MEDS: ACETAMINOPHEN 325 MG TABLET (FP) PO PRN ×2 (00:17→17:17)
[2023-09-26] MEDS: diazePAM 5 MG TABLET PO SCH ×2 (05:37→17:16)
[2023-09-26] MEDS: NICOTINE POLACRILEX 2 MG GUM BUC PRN ×2 (05:52→10:13)
[2023-09-26] MEDS: METHOCARBAMOL 500 MG TABLET PO PRN ×2 (10:12→22:03)
[2023-09-26] MEDS: diazePAM 5 MG TABLET PO PRN (10:12)
[2023-09-26] MEDS: NICOTINE 14 MG/24 HOURS TOPICAL PATCH TD SCH (10:12)
[2023-09-26] MEDS: PRENATAL VITAMINS W/ FOLIC ACID TABLET (FP) PO SCH (10:13)
[2023-09-26] MEDS: THIAMINE HCL 100 MG TABLET (FP) PO SCH (22:03)
[2023-09-26] MEDS: hydrOXYzine PAMOATE 25 MG CAPSULE (FP) PO PRN (22:03)
[2023-09-26] MEDS: MELATONIN 5 MG TABLETS PO SCH (22:03)
[2023-09-27] MEDS: ACETAMINOPHEN 325 MG TABLET (FP) PO PRN (01:11)
[2023-09-27] MEDS ORDERED: diazePAM 5 MG TABLET PO ONE (06:00)
[2023-09-27 06:30] VITALS: RESP 18
[2023-09-27] MEDS: NICOTINE 14 MG/24 HOURS TOPICAL PATCH TD SCH (09:09)
[2023-09-27] MEDS: PRENATAL VITAMINS W/ FOLIC ACID TABLET (FP) PO SCH (09:09)
[2023-09-27] MEDS: NICOTINE POLACRILEX 2 MG GUM BUC PRN (09:09)
[2023-09-27 09:43] VITALS: BP 130/77; PULSE 83; TEMP 96.2
== END 2023-09-27 11:43 | disposition home or self-care (01) | DRG 773 ==
LOC: YASAS 13:21 → Y3N 15:31
PROVIDERS: ADMIT Allergy & Immunology; ATTEND Surgery
PROC: HZ2ZZZZ Detoxification Services for Substance Abuse Treatment (ICD-10-PCS; principal; 2023-09-23)
DX: F10.230 Alcohol dependence with withdrawal, uncomplicated (principal); F11.20 Opioid dependence, uncomplicated; F13.20 Sedative, hypnotic or anxiolytic dependence, uncomplicated; F14.20 Cocaine dependence, uncomplicated; F17.210 Nicotine dependence, cigarettes, uncomplicated; F19.24 Other psychoactive substance dependence with psychoactive substance-induced mood disorder; Z56.0 Unemployment, unspecified; Z59.00 Homelessness unspecified
CPT/HCPCS: 36415; 80053; 80307; 85027; 86780; 87635

== ENCOUNTER 2023-10-13 08:20 | Inpatient (IN) | payer OTHER ==
[2023-10-13 08:48] VITALS: BMI 44.3
[2023-10-13] MEDS ORDERED: LOPERAMIDE HCL 2 MG CAPSULE PO PRN (09:36)
[2023-10-13] MEDS ORDERED: MAG HYDROX/AL HYDROX/SIMETH 30 ML UNIT-DOSE CUP PO PRN (09:36)
[2023-10-13] MEDS ORDERED: guaiFENesin 600 MG TABLET.ER (FP) PO PRN (09:36)
[2023-10-13] MEDS ORDERED: NALOXONE HCL (KLOXXADO) 8 MG SPRAY NS PRN (09:36)
[2023-10-13] MEDS ORDERED: POLYETHYLENE GLYCOL (HEALTHYLAX) 3350 17 GM PACKET PO PRN (09:36)
[2023-10-13] MEDS ORDERED: BENZONATATE 200 MG CAPSULE PO PRN (09:36)
[2023-10-13] MEDS ORDERED: NALOXONE HCL 0.4 MG/ML VIAL IM PRN (09:36)
[2023-10-13] MEDS ORDERED: MAGNESIUM HYDROX 2400MG/30ML ORAL SUSPENSION 30 ML CUP PO PRN (09:36)
[2023-10-13] MEDS ORDERED: COLLOIDAL OATMEAL 1 BAR EACH TP PRN (09:36)
[2023-10-13] MEDS ORDERED: IBUPROFEN 400 MG TABLET (FP) PO PRN (09:36)
[2023-10-13] MEDS ORDERED: BENZOCAINE/MENTHOL (CHLORASEPTIC ) LOZENGE MM PRN (09:36)
[2023-10-13] MEDS ORDERED: ACETAMINOPHEN 325 MG TABLET (FP) ONE (12:14)
[2023-10-13] MEDS ORDERED: PRENATAL VITAMINS W/ FOLIC ACID TABLET (FP) PO ONE (12:14)
[2023-10-13] MEDS ORDERED: NICOTINE 21 MG/24 HOURS TOPICAL PATCH ONE (12:14)
[2023-10-13] MEDS: PRENATAL VITAMINS W/ FOLIC ACID TABLET (FP) PO SCH (12:18)
[2023-10-13] MEDS: NICOTINE 21 MG/24 HOURS TOPICAL PATCH TD SCH (12:18)
[2023-10-13] MEDS: ACETAMINOPHEN 325 MG TABLET (FP) PO PRN (12:18)
[2023-10-13] MEDS: IBUPROFEN 600 MG TABLET (FP) PO PRN (14:57)
[2023-10-13] MEDS: NICOTINE POLACRILEX 2 MG GUM BUC PRN (14:58)
[2023-10-13] MEDS: hydrOXYzine PAMOATE 25 MG CAPSULE (FP) PO PRN (21:39)
[2023-10-13] MEDS: MELATONIN 5 MG TABLETS PO SCH (21:39)
[2023-10-13] MEDS: THIAMINE HCL 100 MG TABLET (FP) PO SCH (21:39)
[2023-10-14] MEDS ORDERED: methaDONE HCL 40 MG DISPERSABLE TABLET PO SCH (06:00)
[2023-10-14 08:20] LABS: HEMATOCRIT 39.1 % (35.4-49); HEMOGLOBIN 12.6 GM/dL (11.7-16.9); MCH 26.9 pg (25.7-33.7); MCHC 32.3 g/dl (32.0-35.9); MEAN CELL VOLUME 83.3 fl (80-96); MEAN PLT VOLUME 8.2 fl (7.5-11.1); PLATELET COUNT 323 10^3/uL (134-434); RDW 13.8 % (11.9-15.9); WHITE BLOOD COUNT 7.9 K/mm3 (4.0-10.0)
[2023-10-14] MEDS: NICOTINE POLACRILEX 2 MG GUM BUC PRN (08:21)
[2023-10-14 09:02] LABS: POTASSIUM 4.9 mmol/L (3.5-5.1)
[2023-10-14 09:09] LABS: ALBUMIN 3.4 g/dl (3.4-5.0); CALCIUM 9.7 mg/dL (8.5-10.1)
[2023-10-14 09:10] LABS: BLOOD UREA NITROGEN 19.4 mg/dL (7-18)
[2023-10-14 09:12] LABS: CREATININE 0.8 mg/dL (0.55-1.3)
[2023-10-14 09:14] LABS: BILIRUBIN,TOTAL 0.2 mg/dL (0.2-1); TOT PROT 6.9 g/dl (6.4-8.2)
[2023-10-14] MEDS: NICOTINE 21 MG/24 HOURS TOPICAL PATCH TD SCH (10:10)
[2023-10-14] MEDS: PRENATAL VITAMINS W/ FOLIC ACID TABLET (FP) PO SCH (10:10)
[2023-10-14] MEDS: ACETAMINOPHEN 325 MG TABLET (FP) PO PRN (10:11)
[2023-10-14] MEDS: MELATONIN 5 MG TABLETS PO SCH (21:23)
[2023-10-14] MEDS: THIAMINE HCL 100 MG TABLET (FP) PO SCH (21:23)
[2023-10-14] MEDS: traZODone HCL 100 MG TABLET (FP) PO PRN (21:24)
[2023-10-15] MEDS: NICOTINE POLACRILEX 2 MG GUM BUC PRN (06:23)
[2023-10-15] MEDS: NICOTINE 21 MG/24 HOURS TOPICAL PATCH TD SCH (10:12)
[2023-10-15] MEDS: PRENATAL VITAMINS W/ FOLIC ACID TABLET (FP) PO SCH (10:12)
[2023-10-15 10:29] LABS: PH,URINE 7.5 (5.0-8.0); URINE APPEARANCE CLEAR; URINE BILIRUBIN NEGATIVE (NEGATIVE); URINE COLOR YELLOW; URINE GLUCOSE (UA) NEGATIVE (NEGATIVE); URINE KETONE NEGATIVE (NEGATIVE); URINE LEUK ESTERASE NEGATIVE (NEGATIVE); URINE NITRITE NEGATIVE (NEGATIVE); URINE PROTEIN NEGATIVE (NEGATIVE); URINE UROBILINOGEN 0.2 mg/dL (0.2-1.0)
[2023-10-15] MEDS: traZODone HCL 100 MG TABLET (FP) PO PRN (21:10)
[2023-10-15] MEDS: THIAMINE HCL 100 MG TABLET (FP) PO SCH (21:10)
[2023-10-15] MEDS: MELATONIN 5 MG TABLETS PO SCH (21:10)
[2023-10-16 07:11] VITALS: RESP 18
[2023-10-16] MEDS: ACETAMINOPHEN 325 MG TABLET (FP) PO PRN (10:18)
[2023-10-16] MEDS: NICOTINE 21 MG/24 HOURS TOPICAL PATCH TD SCH (10:18)
[2023-10-16] MEDS: PRENATAL VITAMINS W/ FOLIC ACID TABLET (FP) PO SCH (10:18)
[2023-10-16] MEDS: MELATONIN 5 MG TABLETS PO SCH (21:44)
[2023-10-16] MEDS: IBUPROFEN 600 MG TABLET (FP) PO PRN (21:44)
[2023-10-16] MEDS: THIAMINE HCL 100 MG TABLET (FP) PO SCH (21:44)
[2023-10-16] MEDS: traZODone HCL 100 MG TABLET (FP) PO PRN (21:44)
[2023-10-17] MEDS: NICOTINE 21 MG/24 HOURS TOPICAL PATCH TD SCH (10:23)
[2023-10-17] MEDS: PRENATAL VITAMINS W/ FOLIC ACID TABLET (FP) PO SCH (10:23)
[2023-10-17] MEDS: ACETAMINOPHEN 325 MG TABLET (FP) PO PRN (15:15)
[2023-10-17] MEDS: THIAMINE HCL 100 MG TABLET (FP) PO SCH (21:45)
[2023-10-17] MEDS: MELATONIN 5 MG TABLETS PO SCH (21:45)
[2023-10-17] MEDS: traZODone HCL 100 MG TABLET (FP) PO PRN (21:45)
[2023-10-18] MEDS: NICOTINE POLACRILEX 2 MG GUM BUC PRN (06:12)
[2023-10-18] MEDS: PRENATAL VITAMINS W/ FOLIC ACID TABLET (FP) PO SCH (10:12)
[2023-10-18] MEDS: NICOTINE 21 MG/24 HOURS TOPICAL PATCH TD SCH (10:12)
[2023-10-18] MEDS: MELATONIN 5 MG TABLETS PO SCH (21:42)
[2023-10-18] MEDS: traZODone HCL 100 MG TABLET (FP) PO PRN (21:42)
[2023-10-18] MEDS: THIAMINE HCL 100 MG TABLET (FP) PO SCH (21:42)
[2023-10-19] MEDS: NICOTINE POLACRILEX 2 MG GUM BUC PRN ×2 (06:39→15:53)
[2023-10-19] MEDS: PRENATAL VITAMINS W/ FOLIC ACID TABLET (FP) PO SCH (10:05)
[2023-10-19] MEDS: NICOTINE 21 MG/24 HOURS TOPICAL PATCH TD SCH (10:05)
[2023-10-19] MEDS: THIAMINE HCL 100 MG TABLET (FP) PO SCH (21:24)
[2023-10-19] MEDS: MELATONIN 5 MG TABLETS PO SCH (21:24)
[2023-10-19] MEDS: ACETAMINOPHEN 325 MG TABLET (FP) PO PRN (21:25)
[2023-10-19] MEDS: traZODone HCL 100 MG TABLET (FP) PO PRN (21:25)
[2023-10-20] MEDS: hydrOXYzine PAMOATE 25 MG CAPSULE (FP) PO PRN (02:08)
[2023-10-20] MEDS: NICOTINE POLACRILEX 2 MG GUM BUC PRN (06:16)
[2023-10-20] MEDS: PRENATAL VITAMINS W/ FOLIC ACID TABLET (FP) PO SCH (09:36)
[2023-10-20] MEDS: NICOTINE 21 MG/24 HOURS TOPICAL PATCH TD SCH (09:37)
[2023-10-20] MEDS: THIAMINE HCL 100 MG TABLET (FP) PO SCH (21:40)
[2023-10-20] MEDS: MELATONIN 5 MG TABLETS PO SCH (21:40)
[2023-10-20] MEDS: traZODone HCL 100 MG TABLET (FP) PO PRN (21:40)
[2023-10-21] MEDS ORDERED: methaDONE HCL 10 MG TABLET PO SCH (06:00)
[2023-10-21] MEDS: NICOTINE POLACRILEX 2 MG GUM BUC PRN (06:01)
[2023-10-21 07:00] VITALS: TEMP 97.6
[2023-10-21] MEDS: PRENATAL VITAMINS W/ FOLIC ACID TABLET (FP) PO SCH (10:02)
[2023-10-21] MEDS: NICOTINE 21 MG/24 HOURS TOPICAL PATCH TD SCH (10:02)
[2023-10-21] MEDS: ACETAMINOPHEN 325 MG TABLET (FP) PO PRN (16:01)
[2023-10-21] MEDS: THIAMINE HCL 100 MG TABLET (FP) PO SCH (21:36)
[2023-10-21] MEDS: MELATONIN 5 MG TABLETS PO SCH (21:36)
[2023-10-22 05:16] VITALS: BP 126/73; PULSE 60
[2023-10-22] MEDS: NICOTINE POLACRILEX 2 MG GUM BUC PRN (06:11)
[2023-10-22] MEDS: NICOTINE 21 MG/24 HOURS TOPICAL PATCH TD SCH (09:39)
[2023-10-22] MEDS: PRENATAL VITAMINS W/ FOLIC ACID TABLET (FP) PO SCH (09:40)
== END 2023-10-22 09:07 | disposition home or self-care (01) | DRG 772 ==
LOC: YASAS 08:20 → Y5N 12:30
PROVIDERS: ADMIT Allergy & Immunology; ATTEND Psychiatry & Neurology Pain Medicine
PROC: HZ42ZZZ Group Counseling for Substance Abuse Treatment, Cognitive-Behavioral (ICD-10-PCS; principal; 2023-10-13)
DX: F13.20 Sedative, hypnotic or anxiolytic dependence, uncomplicated (principal); F14.20 Cocaine dependence, uncomplicated; F11.20 Opioid dependence, uncomplicated; F17.210 Nicotine dependence, cigarettes, uncomplicated; F19.282 Other psychoactive substance dependence with psychoactive substance-induced sleep disorder; E66.09 Other obesity due to excess calories; Z68.32 Body mass index [BMI] 32.0-32.9, adult; Z56.0 Unemployment, unspecified; Z59.00 Homelessness unspecified
CPT/HCPCS: 36415; 80053; 80307; 81003; 85027; 86780; 87635; 87811

== ENCOUNTER 2023-12-23 14:40 | Inpatient (IN) | payer OTHER ==
[2023-12-23 17:35] VITALS: BMI 54.6
[2023-12-23] MEDS ORDERED: ACETAMINOPHEN 325 MG TABLET (FP) ONE ×3 (19:58→22:54)
[2023-12-23] MEDS ORDERED: guaiFENesin 600 MG TABLET.ER (FP) PO PRN (20:15)
[2023-12-23] MEDS ORDERED: NICOTINE POLACRILEX 2 MG LOZENGE BC PRN (20:15)
[2023-12-23] MEDS ORDERED: P-EPHED 60MG/TRIPROLIDI 2.5MG TABLET PO PRN (20:15)
[2023-12-23] MEDS ORDERED: POLYETHYLENE GLYCOL (HEALTHYLAX) 3350 17 GM PACKET PO PRN (20:15)
[2023-12-23] MEDS ORDERED: NALOXONE HCL (KLOXXADO) 8 MG SPRAY NS PRN (20:15)
[2023-12-23] MEDS ORDERED: BENZOCAINE/MENTHOL (CHLORASEPTIC ) LOZENGE MM PRN (20:15)
[2023-12-23] MEDS ORDERED: DOCUSATE SODIUM 100 MG CAPSULE (FP) PO PRN (20:15)
[2023-12-23] MEDS ORDERED: IBUPROFEN 400 MG TABLET (FP) PO PRN (20:15)
[2023-12-23] MEDS ORDERED: IBUPROFEN 600 MG TABLET (FP) PO PRN (20:15)
[2023-12-23] MEDS ORDERED: MAGNESIUM HYDROX 2400MG/30ML ORAL SUSPENSION 30 ML CUP PO PRN (20:15)
[2023-12-23] MEDS ORDERED: LOPERAMIDE HCL 2 MG CAPSULE PO PRN (20:15)
[2023-12-23] MEDS ORDERED: NALOXONE HCL 0.4 MG/ML VIAL IM PRN (20:15)
[2023-12-23] MEDS ORDERED: BENZONATATE 200 MG CAPSULE PO PRN (20:15)
[2023-12-23] MEDS ORDERED: MAG HYDROX/AL HYDROX/SIMETH 30 ML UNIT-DOSE CUP PO PRN (20:15)
[2023-12-23] MEDS ORDERED: BISACODYL 5 MG TABLET.DR (FP) PO PRN (20:15)
[2023-12-23] MEDS: ACETAMINOPHEN 325 MG TABLET (FP) PO ONE (22:51)
[2023-12-24] MEDS: traZODone HCL 50 MG TABLET (FP) PO ONE (01:30)
[2023-12-24] MEDS: MELATONIN 5 MG TABLETS PO SCH (01:37)
[2023-12-24] MEDS: THIAMINE HCL 100 MG TABLET (FP) PO SCH (01:37)
[2023-12-24] MEDS ORDERED: methaDONE HCL 10 MG TABLET PO SCH (08:15)
[2023-12-24] MEDS: PRENATAL VITAMINS W/ FOLIC ACID TABLET (FP) PO SCH (09:48)
[2023-12-24] MEDS: NICOTINE POLACRILEX 2 MG GUM BUC PRN (09:49)
[2023-12-24 12:27] LABS: HEMATOCRIT 37.4 % (35.4-49); HEMOGLOBIN 12.7 GM/dL (11.7-16.9); MCH 27.9 pg (25.7-33.7); MCHC 33.9 g/dl (32.0-35.9); MEAN CELL VOLUME 82.5 fl (80-96); MEAN PLT VOLUME 7.5 fl (7.5-11.1); PLATELET COUNT 331 10^3/uL (134-434); RBC 4.53 M/mm3 (4.00-5.60); RDW 14.8 % (11.9-15.9); WHITE BLOOD COUNT 7.4 K/mm3 (4.0-10.0)
[2023-12-24 12:47] LABS: POTASSIUM 4.3 mmol/L (3.5-5.1)
[2023-12-24 12:53] LABS: ALBUMIN 3.2 g/dl (3.4-5.0); CALCIUM 9.2 mg/dL (8.5-10.1)
[2023-12-24 12:55] LABS: BLOOD UREA NITROGEN 16.2 mg/dL (7-18)
[2023-12-24 12:56] LABS: CREATININE 0.8 mg/dL (0.55-1.3)
[2023-12-24 12:57] LABS: URINE APPEARANCE CLOUDY; URINE BILIRUBIN 1+ (NEGATIVE); URINE COLOR DK YELLOW; URINE GLUCOSE (UA) NEGATIVE (NEGATIVE); URINE KETONE NEGATIVE (NEGATIVE)
[2023-12-24 12:58] LABS: EPI CELLS 15 /uL (0-25.1); HYALINE CASTS 6 /uL (0-3.1); URINE BACTERIA 9 /uL (0-1359); URINE LEUK ESTERASE NEGATIVE (NEGATIVE); URINE NITRITE NEGATIVE (NEGATIVE); URINE PROTEIN 1+ (NEGATIVE); URINE RBC 25 /uL (0-23.9); URINE WBC 7 /uL (0-25.8)
[2023-12-24 12:59] LABS: BILIRUBIN,TOTAL 0.4 mg/dL (0.2-1); TOT PROT 6.5 g/dl (6.4-8.2)
[2023-12-24] MEDS: traZODone HCL 100 MG TABLET (FP) PO SCH (21:49)
[2023-12-30] MEDS: ACETAMINOPHEN 325 MG TABLET (FP) PO PRN (11:57)
[2024-01-01 07:37] VITALS: RESP 18
[2024-01-04] MEDS: TOPIRAMATE 25 MG TABLET PO SCH (10:38)
[2024-01-05 06:43] VITALS: BP 103/75; PULSE 79; TEMP 97.5
== END 2024-01-05 09:08 | disposition home or self-care (01) | DRG 772 ==
LOC: YASAS 14:40 → Y3W 12-24 01:18
PROVIDERS: ADMIT Allergy & Immunology; ATTEND Psychiatry & Neurology Pain Medicine
PROC: HZ42ZZZ Group Counseling for Substance Abuse Treatment, Cognitive-Behavioral (ICD-10-PCS; principal; 2023-12-24)
DX: F11.20 Opioid dependence, uncomplicated (principal); F10.20 Alcohol dependence, uncomplicated; F14.20 Cocaine dependence, uncomplicated; F17.210 Nicotine dependence, cigarettes, uncomplicated; F12.20 Cannabis dependence, uncomplicated; F19.282 Other psychoactive substance dependence with psychoactive substance-induced sleep disorder; R79.89 Other specified abnormal findings of blood chemistry; Z56.0 Unemployment, unspecified; Z59.00 Homelessness unspecified
CPT/HCPCS: 36415; 80053; 80305; 81003; 85027; 86780; 87635